=== PATIENT | male | born 1975 | race Caucasian/White ===

== ENCOUNTER 2022-10-28 14:44 | Outpatient (AMB) | payer BC, SELFPAY ==
--- NOTE | 2022-10-28 15:01 | MHC.PC.OV ---
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 ? Tick bite -He is unsure if it was a tick or not. He does report joint pain. -Rash on R arm PMHx:GERD SurgHx: None FHx: Dad: Prostate CA, PE Mom: CAD, [place]. SocHx: Nonsmoker, EtOH weekends 3-4. 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 1. Little interest or pleasure in doing things: not at all 2. Feeling down, depressed, or hopeless: not at all 3. Trouble falling or staying asleep, or sleeping too much: several days 4. Feeling tired or having little energy: several days 5. Poor appetite or overeating: not at all 6. Feeling bad about yourself - or that you are a failure or have let yourself or your family down: not at all 7. Trouble concentrating on things, such as reading the newspaper or watching television: not at all 8. Moving or speaking so slowly that other people could have noticed. Or the opposite - being so fidgety or restless that you have been moving around a lot more than usual: not at all 9. Thoughts that you would be better off or of hurting yourself in some way: not at all Total score: 2 Source: Developed by Drs. Brian Floyd, Ellie Blackwell, Mohinder Foster and colleagues, with an educational ligia from [employer]. Thrive Questionnaire I am a: Patient What is your living situation today?: I have a steady place to live Within the past 12 months, did the food you bought not last and you didn't have the money to get more?: Never true Within the past 12 months, did you worry whether your food would run out before you got money to buy more?: Never true Do you have trouble paying for medicines?: No Do you have trouble getting transportation to medical appointments?: No Do you have trouble paying your heating and electricity bill?: No Do you have trouble taking care of your child, family member or friend?: No Do you have trouble with day-to-day activities such as bathing, preparing meals, shopping, managing finances, etc.?: No Are you currently unemployed and looking for a job?: No Are you interested in more education?: No PATRICK-7 AMB Questionnaire PATRICK-7 Feeling nervous, anxious, or on edge: 0 = Not at all Not being able to stop or control worryin = Not at all Worrying too much about different things: 0 = Not at all Trouble relaxin = Several days Being so restless that it is hard to sit still: 0 = Not at all Becoming easily annoyed or irritable: 0 = Not at all Feeling afraid as if something awful might happen: 0 = Not at all Total PATRICK-7 score (0-4 normal; 5-9 mild; 10-14 moderate; 15-21 severe): 1 Source: Developed by Drs. Brian Floyd, Mohinder Stark and colleagues, with an educational ligia from [employer]. Review of Systems Const Denies chills, Denies fatigue, Denies fever(s), Denies headache(s) and Denies weakness ENT Denies dizziness and Denies headache(s) Card Denies dyspnea Resp Denies cough, Denies dyspnea, Denies wheezing and Denies other (shortness of breath) Musc Details: R elbow pain Denies numbness and Denies tingling Skin/Breast Reports rash Neuro Denies dizziness, Denies headache(s), Denies numbness, Denies tingling and Denies weakness Psych Denies anxiety and Denies depression Endo Denies fatigue Aller/Immun Denies wheezing Physical exam (Primary Care) Vital Signs: Last Vital Signs Pulse 73 10/28/22 15:02 BP 120/78 10/28/22 15:02 Pulse Ox 97 10/28/22 15:02 Oxygen Delivery Method Room Air 10/28/22 15:02 BMI result Body Mass Index 30.4 Tobacco/Smoking Status: Tobacco use Status Tobacco use date assessed 10/28/22 10/28/22 15:19 Patient Tobacco Use Status Never used Tobacco 10/28/22 15:19 e-Cigarette/Vaping Use Never Used 10/28/22 15:19 PHQ-9: PHQ-9 Score PHQ-9: Total score 2 10/28/22 15:31 Const General: well developed; No acute distress Nutritional Appearance: well nourished Orientation/consciousness: patient oriented x3 HENMT Head: Yes normocephalic and Yes atraumatic Eyes General: appearance normal, both eyes and all related structures Pupils: Equal, round and reactive pupils present EOM: EOMs intact bilaterally Resp Effort & Inspection: normal respiratory effort Auscultation: clear to auscultation bilaterally Cardio Rate: regular rate Rhythm: regular rhythm Heart sounds: S1 normal heart sound present, S2 normal heart sound present, no gallops, no murmurs and no rubs Skin Other: Rash on r arm about 4cm in diameter with inflammatory response at the center with R elbow pain Neuro General: patient oriented x3 and gait normal Cranial nerves: Yes Equal, round and reactive pupils present Psych Affect: normal affect Assessment and Plan Assessment & Plan (1) GERD (gastroesophageal reflux disease): Code(s): K21.9 - Gastro-esophageal reflux disease without esophagitis Plan: Significant GERD symptoms almost every day prior to using Prilosec OTC Will give him a script for omeprazole and refer him to Gastroenterology (2) Tick bite: Code(s): W57.XXXA - Bitten or stung by nonvenomous insect and other nonvenomous arthropods, initial encounter Plan: Expanding rash with inflammatory response at the Center, now about 4 cm in diameter Also has worsening right elbow pain which is distal to this lesion. Presentation consistent with an erythema migrans rash and Lyme joint pain Will start patient on doxycycline and check Lyme titer Follow-up in a week (3) Laboratory exam ordered as part of routine general medical examination: Code(s): Z00.00 - Encounter for general adult medical examination without abnormal findings Plan: Check labs Orders: Orders Comprehensive Page. Panel Fast Today Z00.00 - Encounter for general adult medical examination without abnormal findings Lipid Panel Today Z00.00 - Encounter for general adult medical examination without abnormal findings Prostate Specific Antigen Scr Today Z12.5 - Encounter for screening for malignant neoplasm of prostate TSH reflex Free T4 Today Z00.00 - Encounter for general adult medical examination without abnormal findings Microalbumin, Random (w Creat) Today I10 - Essential (primary) hypertension UA and rflx microscopic Today Z00.00 - Encounter for general adult medical examination without abnormal findings Referrals Gastroenterology Referral K21.9 - Gastro-esophageal reflux disease without esophagitis, Z12.11 - Encounter for screening for malignant neoplasm of colon Medications: New doxycycline hyclate 100 mg PO BID 56 tabs 0RF 28 days omeprazole magnesium (Prilosec OTC) 20 mg PO DAILY 90 tabs 1RF 90 days Coding Level of Care Code New Pt Level 4 (08940) Diagnoses GERD (gastroesophageal reflux disease) K21.9 Tick bite W57.XXXA Laboratory exam ordered as part of routine general medical examination Z00.00
[2022-10-28 15:02] VITALS: BP 120/78; PULSE 73; O2SAT 97; BMI 30.4
== END 2022-10-28 15:45 | disposition home or self-care (01) ==
PROVIDERS: Visit Provider Family Medicine
DX: K21.9 Gastro-esophageal reflux disease without esophagitis (principal); W57.XXXA Bitten or stung by nonvenomous insect and other nonvenomous arthropods, initial encounter; Z00.00 Encounter for general adult medical examination without abnormal findings
CPT/HCPCS: 99204

== ENCOUNTER 2022-10-30 07:02 | Outpatient (REF) | payer BC, SELFPAY ==
[2022-10-30 11:53] LABS: Appearance Urine Clear; Color Urine Yellow; Glucose Urine UA Negative (Negative); Leukocyte Esterase Urine Negative (Negative); Nitrite Urine Negative (Negative); Specific Gravity - Urine 1.015 (1.005-1.025); Urine Blood Negative (Negative); Urine Ketones Negative (Negative); Urine Protein Negative (Neg-Trace)
[2022-10-30 12:07] LABS: Prostate Specific Antigen Scr 0.38 ng/mL (<0.05-4.0)
[2022-10-30 12:09] LABS: Alanine Aminotransferase 30 U/L (0-40); Albumin Level 4.4 g/dL (3.5-5.0); Alkaline Phosphatase 70 U/L (39-117); Anion Gap 10 (12-20); Aspartate Amino Transferase 22 U/L (5-37); Bilirubin Total 2.5 mg/dL (0.0-1.0); Blood Urea Nitrogen 13 mg/dL (9-16); Calcium 9.7 mg/dL (8.4-10.2); Carbon Dioxide 25 mmol/L (22-29); Chloride 106 mmol/L (96-108); Cholesterol 286 mg/dL; Estimated Glomerular Filt Rate > 60; Glucose Fasting 86 mg/dL (60-99); HDL Cholesterol 61 mg/dL; LDL Cholesterol Calculated 206 mg/dl; Potassium 3.8 mmol/L (3.3-5.1); Sodium 137 mmol/L (135-145); TSH reflex Free T4 1.02 uIU/mL (0.32-4.0); Total Protein 7.2 g/dL (6.5-8.0); Triglycerides 96 mg/dL
[2022-10-30 13:11] LABS: Creatinine Urine 99.94 mg/dL; Microalbumin Urine < 5.0 mg/L
[2022-10-31 10:09] LABS: Lyme Abs Screen <0.90 index
== END 2022-10-30 07:03 | disposition home or self-care (01) ==
LOC: HO.WFDLDS 07:02
PROVIDERS: Visit Provider Family Medicine
DX: Z00.00 Encounter for general adult medical examination without abnormal findings (principal); Z12.5 Encounter for screening for malignant neoplasm of prostate; I10 Essential (primary) hypertension; T14.8XXA Other injury of unspecified body region, initial encounter; W57.XXXA Bitten or stung by nonvenomous insect and other nonvenomous arthropods, initial encounter
CPT/HCPCS: 36415; 80053; 80061; 81003; 82043; 84153; 84443; 86617; 86618

== ENCOUNTER 2022-11-25 11:56 | Outpatient (AMB) | payer BC, SELFPAY ==
--- NOTE | 2022-11-25 11:50 | A.OFFVIS_ITS ---
Intake Vital Signs 11/25/22 11:52 Height 5 ft 11 in Weight 221 lb BMI 30.8 BP 118/64 Blood Pressure Location Rt brachial Position Sitting Intake Visit Reasons: GERD/Colonoscopy screening Intake Note: Patient is here for new patient appointment for GERD and Colonoscopy screening. CC: Increase acid reflux since May. Allergies cephalexin [From Keflex] Allergy (Mild, Verified 11/25/22 11:53) hives Medication List - Last Reconciled 11/25/22 by Emily Hanson, RN omeprazole magnesium (Prilosec OTC) 20 mg PO DAILY 90 days HPI HPI Comments History of Present Illness Details A 47 y/o with persistent gerd- managed with tums-then prilosec daily He has frequent break through- esophageal spasm- event that was scary As appetite is typically good-he has globus Bowels-no issues No cardiac or respiratory diagnosis No nausea, vomiting, hematemesis, hematochezia fever chills PFSH Medical History Frequent headaches Whiplash Sinusitis Asthma Family History Mother Heart attack Father Asthma Cancer Social History Housing: House Patient Tobacco Use Status: Never used Tobacco e-Cigarette/Vaping Use: Never Used service: No Current occupational status: employed 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 Cognitive needs: No Hearing needs: No Vision needs: No Review of Systems Const All systems reviewed & are unremarkable except as noted in HPI and below Card Denies chest pain and Reports dyspnea Resp Reports dyspnea GI Denies abdominal pain, Denies change in bowel habits, Reports heartburn, Denies nausea and Denies vomiting Physical Exam Vital Signs: Last Vital Signs BP 118/64 11/25/22 11:52 BMI result Body Mass Index 30.8 Const General: cooperative, healthy appearing and comfortable Orientation/consciousness: patient oriented x3 Limitations: no limitations Resp Effort & Inspection: normal respiratory effort and able to speak in complete sentences Auscultation: clear to auscultation bilaterally, no rales, no rhonchi and no wheezes Cardio Rate: regular rate Rhythm: regular rhythm Heart sounds: S1 normal heart sound present and S2 normal heart sound present GI Palpation (GI): Soft to palpation and nontender Auscultation: normal bowel sounds Skin General skin exam: no rashes or lesions noted Neuro General: patient oriented x3 Extrem General: Yes full ROM Assessment & Plan Assessment & Plan (1) GERD (gastroesophageal reflux disease): Comment: Omeprazole 20 mg with breakthrough will switch to 40 mg daily Code(s): K21.9 - Gastro-esophageal reflux disease without esophagitis Plan: Omeprazole 40 mg daily Reflux precautions review EGD r/o pud, nonulcer dyspepsia, esophagitis or other endoscopic findings to account for his symptoms Upper GI series assessed prior to EGD (able to get sooner eval) (2) Screening for colon cancer: Code(s): Z12.11 - Encounter for screening for malignant neoplasm of colon Plan: Index screening colonoscopy MiraLax Gatorade split prep Plan EGD/ colonoscopy MiraLax Gatorade split prep Orders: Orders [place] upper GI series Today K21.9 - Gastro-esophageal reflux disease without esophagitis, R09.89 - Other specified symptoms and signs involving the circulatory and respiratory systems Medications: New bisacodyl (Dulcolax (bisacodyl)) Take 4 tablets by mouth at 12:00pm the day before your procedure. 20 mg (4 x 5 mg) PO ONCE 1 day 4 tabs 0RF colonoscopy prep Z12.11 - Encounter for screening for malignant neoplasm of colon omeprazole 40 mg (2 x 20 mg) PO DAILY PRN 30 caps 5RF reflux polyethylene glycol 3350 (Miralax) Take as directed by mouth the day before your procedure. 238 grams PO ONCE 1 day PRN 238 grams 0RF laxative effect Patient Instructions: Em 47-year-old Gent persistent acid reflux age-appropriate index screening colonoscopy He will be scheduled for EGD/ colonoscpy-discussed procedure, rare risks, need for escorted due to anesthesia as well as MiraLax Gatorade split prep literature given Reviewed reflux precautions Continue PPI with increased dose, avoid culprits Get upper GI series Encouraged to call with any questions or concerns Appreciate the opportunity assist in the care this em Nick Coding Level of Care Code New Pt Level 3 (20595) Diagnoses GERD (gastroesophageal reflux disease) K21.9 Screening for colon cancer Z12.11 Time Spent (min) 30
[2022-11-25 11:52] VITALS: BP 118/64; BMI 30.8
== END 2022-11-25 12:37 | disposition home or self-care (01) ==
PROVIDERS: PCP Family Medicine; Visit Provider Physician Assistant
DX: Z01.818 Encounter for other preprocedural examination (principal); Z12.11 Encounter for screening for malignant neoplasm of colon; K21.9 Gastro-esophageal reflux disease without esophagitis
CPT/HCPCS: S0285

== ENCOUNTER → 2022-11-25 11:56 | Outpatient (BNVA) | payer BC, SELFPAY | PROVIDERS: PCP Family Medicine; Visit Provider Physician Assistant ==

== ENCOUNTER 2023-02-25 06:52 | Day surgery (SDC) | payer BC, SELFPAY ==
[2023-02-23 10:18] VITALS: BMI 30.8
--- NOTE | 2023-02-24 09:07 | HO.ANESPROP2 ---
Documented by User: Shelley Alston NP 02/24/23 09:07 HPI - Anesthesia Eval Consult details Narrative: 48yo M for Upper Endoscopy and Colonoscopy [facility] Active Problems Active Problems: All Active Problems (Updated 11/25/22 @ 12:57 by Claudia You PA-C) Globus sensation (Acute) Screening for colon cancer (Acute) Tick bite (Acute) Laboratory exam ordered as part of routine general medical examination (Acute) GERD (gastroesophageal reflux disease) (Acute) Past Medical History Medical History Frequent headaches Whiplash Sinusitis Asthma Family History Family History Mother Heart attack Father Asthma Cancer Social History Social History Housing: House Patient Tobacco Use Status: Never used Tobacco e-Cigarette/Vaping Use: Never Used Use of substances other than those prescribed or required for medical reasons: No Are you DNR?: No Advance Directives: No Advance Directives Information Provided: Yes service: No Current occupational status: employed 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 Cognitive needs: No Hearing needs: No Vision needs: No Meds Allergies Allergy/AdvReac Type Severity Reaction Status Date / Time cephalexin [From Keflex] Allergy Mild hives Verified 02/25/23 07:06 Exam Height,Weight and Vital Signs: Height 5 ft 11 in Weight 100.244 kg Assessment and Plan Assessment Anesthesia Assessment: Chart Reviewed Documented by User: Manuel Evangelista MD 02/25/23 07:27 [facility] Past Medical History Medical History Frequent headaches Whiplash Sinusitis Asthma Family History Family History Mother Heart attack Father Asthma Cancer Family history of problems with anesthesia: No Surgical History History of Problems with Anesthesia: No Social History Social History Housing: House Patient Tobacco Use Status: Never used Tobacco e-Cigarette/Vaping Use: Never Used Use of substances other than those prescribed or required for medical reasons: No Are you DNR?: No Advance Directives: No Advance Directives Information Provided: Yes service: No Current occupational status: employed 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 Cognitive needs: No Hearing needs: No Vision needs: No Meds Allergies Allergy/AdvReac Type Severity Reaction Status Date / Time cephalexin [From Keflex] Allergy Mild hives Verified 02/25/23 07:06 Exam Airway Mallampati Class: II TM Dist: >3cm Neck ROM: Limited Heart: rrr Lungs: cta Assessment and Plan Assessment Anesthesia Assessment: Anesthesia Plan Discussed Final Anesthetic Review Family History of Problems with Anesthesia: No History of Problems with Anesthesia: No NPO: Yes ASA Class: II Final Preanesthetic Review: No Changes in Pt Med Stat, Meds/Allgs Chart Reviewed, Consent Obtained/Reviewed and Anes Risks/Benef Reviewed Patient Risk: Intermediate Procedure Risk: Intermediate Anesthetic Plan Anesthetic Plan: GA and Agree w/ Assess. and Plan Disposition: Standard PACU
--- NOTE | 2023-02-25 06:48 | MHC.SHP ---
Pre-Procedural Eval Section A Date of Service: 02/25/23 Section B Chief Complaint: reflux disease,screening Relevant Family History (Specify if Yes): No Relevant Social History: None Present Medications: see Short Stay Collaborative assessment Medical History: Significant History (Frequent headaches Whiplash Sinusitis Asthma) History of Previous Operations: No relevant previous surgery Allergies: Allergies Allergy/AdvReac Type Severity Reaction Status Date / Time cephalexin [From Keflex] Allergy Mild hives Verified 11/25/22 11:53 Review of Systems Sugical H&P ROS: Negative: Constitution, Cardiovascular, Respiratory, Neurological, Psychiatric, Hem-Onc, Allergic/Immunologic, Gastrointestinal, Genitourinary, Musculoskeletal, Integumentary, Endocrine and Eyes/Ears/Nose/Throat Exam Surgical H&P Exam: Normal: HEENT, Normal: Heart, Normal: Lungs, Normal: Extremities, Normal: Abdomen, Normal: Skin and Normal: Neurological Plan Diagnosis/Plan: Unchanged I have reviewed the history and physical and performed a pertinent physical examination on my patient. No changes have occurred unless specified. Time Spent With Patient Time: Total time managing care of this patient today ____ minutes.
[2023-02-25 07:02] VITALS: BMI 30.1
[2023-02-25 07:17] VITALS: BP 139/84; PULSE 83; RESP 16; TEMP 35.8; O2SAT 97
[2023-02-25] MEDS: Lactated Ringers 1,000 ML 100 ML IVCONT (07:18)
--- NOTE | 2023-02-25 08:52 | W.PM.OPN ---
Operative Note Operative Note Date of Service: 02/25/23 Narrative: Operative Information Procedure Description: EGD, Colonoscopy Indication: GERD, screening Anesthesia: MAC FLEXIBLE TRANSORAL UPPER GASTROINTESTINAL ENDOSCOPY AND COLONOSCOPY PROCEDURE NOTE UPPER ENDOSCOPY Consent: Indications for the procedure and potential complications of bleeding, perforation, reaction to medications and missed diagnosis were discussed with the patient and informed consent was obtained. Instrument: Olympus GIF H 190 J mid size upper endoscope Monitoring: Vital signs and clinical assessment, continuous EKG monitoring, Pulse oximetry, Carbon Dioxide monitoring and blood pressure monitoring were done throughout the procedure. Procedure: The patient was placed in the left lateral decubitis position and pre-procedure medications were administered and a bite block was placed. The endoscope was inserted into the mouth and advanced under direct vision to the third part of duodenum. A careful inspection was made as the upper endoscope was withdrawn including a retroflexed examination of the proximal stomach; Findings and interventions are described below. Findings: Larynx:normal Esophagus: GE junction at 39 cm, diaphragm hiatus at 41 cm, consistent with 2 cm sliding hiatal hernia, erosive esophagitis LA grade C with linear erosive streaks and bogginess noted at GEJ, bx taken from GEJ, distal and proximal esophagus Stomach: Normal mucosa. Grade 2 flap valve on retroflexed examination of the cardia. Duodenum: Normal bulb and descending duodenum, Intervention: Biopsies as noted above COLONOSCOPY Instrument: Olympus variable stiffness ADULT scope 190L Colonoscopy Monitoring: Vital signs and clinical assessment, continuous EKG monitoring, Pulse oximetry, Carbon Dioxide monitoring and blood pressure monitoring were done throughout the procedure. Colon withdrawal time was 8 minutes. Procedure: The patient was placed in the left lateral decubitis position and pre-procedure medications were administered. After a digital rectal examination of the ano-rectum, the video colonoscope was inserted into the rectum and advanced through the colon to the cecum/TI. The colonoscope was slowly withdrawn in a retrograde panoramic fashion and the colon mucosa was carefully examined including a retroflexed view of the rectum. Findings and interventions are described below. Procedure Difficulty: easy Findings: Terminal Ileum-normal Cecum:normal Ascending Colon: normal Transverse Colon -normal Descending Colon:normal Sigmoid Colon: normal Rectum: Retroflexion with small internal hemorrhoids, grade I Anorectum - normal Colon preparation: [place] Bowel Preparation Scale Right colon; 3 Transverse colon: 3 Left colon; 3 (0 = Unprepared colon segment with mucosa not seen due to solid stool that cannot be cleared. 1 = Portion of mucosa of the colon segment seen, but other areas of the colon segment not well seen due to staining, residual stool and/or opaque liquid. 2 = Minor amount of residual staining, small fragments of stool and/or opaque liquid, but mucosa of colon segment seen well. 3 = Entire mucosa of colon segment seen well with no residual staining, small fragments of stool or opaque liquid) Impression and Post Procedure Diagnosis: Endoscopy Findings: erosive esophagitis small haital hernia Colonoscopy Findings: internal hemorrhoids Plan: Await Pathology results Repeat Colonoscopy in 10 years or earlier if clinically indicated High fiber diet leaflet avoid straining at stool, epsom salts and sitz bath, anusol supps or cream GERD precautions, check compliance with PPI, consider repeat EGD in 3-6 months to document healing and exclude barretts Above findings were reviewed with the patient and relevant handouts were provided if indicated.
[2023-02-25 08:55] VITALS: BP 107/60; PULSE 64; RESP 16; TEMP 36.1; O2SAT 98
[2023-02-25 09:10] VITALS: BP 134/93; PULSE 74; RESP 16; TEMP 36.2; O2SAT 99
== END 2023-02-25 09:35 | disposition home or self-care (01) ==
PROVIDERS: PCP Family Medicine; Visit Provider Internal Medicine Gastroenterology
PROC: (CPT 45378; principal; 2023-02-25 08:30)
DX: Z12.11 Encounter for screening for malignant neoplasm of colon (principal); K64.0 First degree hemorrhoids; K21.9 Gastro-esophageal reflux disease without esophagitis; K20.80 Other esophagitis without bleeding; K44.9 Diaphragmatic hernia without obstruction or gangrene; J32.9 Chronic sinusitis, unspecified; J45.909 Unspecified asthma, uncomplicated; R51.9 Headache, unspecified; Z79.899 Other long term (current) drug therapy; Z88.1 Allergy status to other antibiotic agents
CPT/HCPCS: 45378; 43239; 88305; J2704

== ENCOUNTER → 2023-02-25 06:52 | Outpatient (BNV) | payer BC, SELFPAY | PROVIDERS: PCP Family Medicine; Visit Provider Internal Medicine Gastroenterology | DX: Z12.11 Encounter for screening for malignant neoplasm of colon (principal); K21.00 Gastro-esophageal reflux disease with esophagitis, without bleeding; K64.0 First degree hemorrhoids | CPT/HCPCS: 43239; 45378 ==

== ENCOUNTER 2023-03-17 15:03 | Outpatient (AMB) | payer BC, SELFPAY ==
[2023-03-17 15:11] VITALS: BP 141/94; PULSE 93; BMI 28.6
--- NOTE | 2023-03-17 15:11 | A.OFFVIS_ITS ---
Intake Vital Signs 03/17/23 15:11 Height 5 ft 11 in Weight 205 lb BMI 28.6 BP 141/94 H Blood Pressure Location Lt brachial Position Sitting Pulse 93 Intake Visit Reasons: S/P Double; Dr. Aguila Intake Note: Follow up for EGD/Colonoscopy results. Patient denies any GI issues. 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 Accompanied by: Self / Same As Patient Allergies cephalexin [From Keflex] Allergy (Mild, Verified 03/17/23 15:11) hives HPI HPI Comments History of Present Illness Details A 48 y/o male after EGD and colonoscopy-he tolerated procedures well He said since he has started new medication reflux symptoms have much improved Now pantoprazole - sx improved Review procedure report, pathology recommendation Questions asked answered to his satisfaction no nausea, vomiting hematemesis, hematochezia fever chills PFSH Medical History Frequent headaches Whiplash Sinusitis Asthma Surgical History History of esophagogastroduodenoscopy (EGD) Hx of colonoscopy Family History Mother Heart attack Father Asthma Cancer Social History Housing: House Patient Tobacco Use Status: Never used Tobacco e-Cigarette/Vaping Use: Never Used service: No Current occupational status: employed 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 Cognitive needs: No Hearing needs: No Vision needs: No Review of Systems Const All systems reviewed & are unremarkable except as noted in HPI and below Card Denies chest pain and Denies dyspnea Resp Denies dyspnea GI Denies abdominal pain, Denies heartburn, Denies nausea and Denies vomiting Physical Exam Vital Signs: Last Vital Signs Pulse 93 03/17/23 15:11 BP 141/94 H 03/17/23 15:11 BMI result Body Mass Index 28.6 Const General: cooperative, healthy appearing, comfortable and no acute distress Orientation/consciousness: patient oriented x3 Limitations: no limitations Eyes Sclerae: sclerae normal Skin General skin exam: no rashes or lesions noted Neuro General: patient oriented x3 Extrem General: Yes full ROM Psych Appearance: grossly normal and well kempt Mental Status: mental status grossly normal Speech and movement: Normal speech and movement present and Clear speech present Affect: normal affect Attitude: cooperative Thought process: Normal thought process present Thought content: Normal thought content present Results Reviewed Results Reviewed: Impression and Post Procedure Diagnosis: Endoscopy Findings: erosive esophagitis small haital hernia Colonoscopy Findings: internal hemorrhoids Plan: Await Pathology results Repeat Colonoscopy in 10 years or earlier if clinically indicated High fiber diet leaflet avoid straining at stool, epsom salts and sitz bath, anusol supps or cream GERD precautions, check compliance with PPI, consider repeat EGD in 3-6 months to document healing and exclude barretts Above findings were reviewed with the patient and relevant handouts were provided if indicated. Name: Jono Vasquez Age/Sex: 48/M Attending: Marv Aguila MD : 1975 Submitted by: Marv Aguila MD Copies to: Sherif Hernandez MD MR #: [id number] Status: [facility] Collected: 02/25/23 Location: [facility] Received: 02/25/23 Diagnosis A. EG junction, biopsy: - Cardiofundic-type mucosa with moderate chronic, focally active, inflammation; no intestinal metaplasia seen. - Active esophagitis (maximum eosinophil count 5 per high powered field). B. Esophagus, distal, biopsy: Active esophagitis (maximum eosinophil count 12 per high powered field). C. Esophagus, proximal, biopsy: Squamous epithelium within normal limits; no inflammation seen. Clinical History Pre-Op Dx: Screening, GERD Post-Op Dx: Lower: internal hemorrhoids; Upper: erosive esophagitis, hiatal hernia Microscopic Description A-C. Microscopic sections reviewed. Material Received A. EG junction B. Distal esophagus C. Proximal esophagus Gross Description Received in 3 parts. Part A: Received in formalin labeled ?EG junction? are 2 grimaldo irregular and rectangular tissue fragments measuring 0.15 and 0.3 cm, submitted in toto in a cassette labeled A. Part B: Received in formalin labeled ?distal esophagus? are 4 grimaldo irregular tissue fragments ranging from 0.1-0.35 cm, submitted in toto in a cassette labeled B. Part C: Received in formalin labeled ?proximal esophagus? are 2 alan-white irregular tissue fragments each measuring 0.3 cm, submitted in toto in a cassette labeled C. CEDS Copies To Patient: Jono Vasquez Age/Sex: 48/M MR#: [id number] Page 1 of 2 Assessment & Plan Assessment & Plan (1) Esophagitis determined by biopsy: Comment: Reviewed pathology and recommendation Code(s): K20.90 - Esophagitis, unspecified without bleeding Plan: Continue pantoprazole Repeat EGD 3-6 months (2) GERD (gastroesophageal reflux disease): Comment: Pantoprazole 40 mg daily Code(s): K21.9 - Gastro-esophageal reflux disease without esophagitis Plan: Reinforced importance of consistent daily PPI (3) Hemorrhoids: Code(s): K64.9 - Unspecified hemorrhoids Plan: Avoid straining Maintain high-fiber diet Plan EGD- w/ AGUILA- 3-6 months-note sent to schedulers Orders: Orders EDG - GI Use Only 3 Months K20.90 - Esophagitis, unspecified without bleeding Patient Instructions: Repeat EGD 3-6 months Continue pantoprazole 40 mg daily Reflux precautions review Continue high-fiber diet Avoid straining with hemorrhoid Repeat asymptomatic colonoscopy 10 years Coding Level of Care Code Est Pt Level 3 (96492) Diagnoses Esophagitis determined by biopsy K20.90 GERD (gastroesophageal reflux disease) K21.9 Hemorrhoids K64.9 Time Spent (min) 30
== END 2023-03-17 15:56 | disposition home or self-care (01) ==
PROVIDERS: PCP Family Medicine; Visit Provider Physician Assistant
DX: K20.90 Esophagitis, unspecified without bleeding (principal); K21.9 Gastro-esophageal reflux disease without esophagitis; K64.9 Unspecified hemorrhoids
CPT/HCPCS: 99213

== ENCOUNTER → 2023-03-17 15:03 | Outpatient (BNVA) | payer BC, SELFPAY | PROVIDERS: PCP Family Medicine; Visit Provider Physician Assistant ==

== ENCOUNTER 2023-04-22 15:35 | Outpatient (AMB) | payer BC, SELFPAY ==
[2023-04-22 15:42] VITALS: BP 124/70; PULSE 77; O2SAT 97; BMI 30.2
--- NOTE | 2023-04-22 15:42 | A.OFFPC_ITS ---
Vital Signs 04/22/23 15:42 Height 5 ft 11 in Weight 216 lb 4 oz BMI 30.2 BP 124/70 Blood Pressure Location Lt brachial Position Sitting Pulse 77 Pulse Source Pulse Oximeter Pulse Oximetry (%) 97 Oxygen Delivery Method Room Air Intake Visit Reasons: cpe Intake Note: Patient is here today for his physical. Allergies cephalexin [From Keflex] Allergy (Mild, Verified 04/22/23 15:45) hives Tobacco use date assessed: 04/22/23 HPI cpe HPI Details 48 y/o male presents for a CPE with f/u labs and health maintenance. Labs were drawn 10/30/22. Reviewed labs with pt. Triglycerides 86. TC 286. LDL 206. HDL 61. Pt reports GERD much improved on pantoprazole. 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 Cognitive needs: No Hearing needs: No Vision needs: No Physical exam (Primary Care) Vital Signs: Last Vital Signs Pulse 77 04/22/23 15:42 BP 124/70 04/22/23 15:42 Pulse Ox 97 04/22/23 15:42 Oxygen Delivery Method Room Air 04/22/23 15:42 BMI result Body Mass Index 30.2 Tobacco/Smoking Status: Tobacco use Status Tobacco use date assessed 04/22/23 04/22/23 15:49 Patient Tobacco Use Status Never used Tobacco 04/22/23 15:44 e-Cigarette/Vaping Use Never Used 04/22/23 15:44 Assessment and Plan Assessment & Plan (1) Adult general medical exam: Code(s): Z00.00 - Encounter for general adult medical examination without abnormal findings Plan: 48-year-old?male?presents?for?complete?physical?exam Exam?within?normal?limits Encouraged?healthy?diet?with?active?lifestyle?and?plenty?of?exercise (2) GERD (gastroesophageal reflux disease): Comment: Pantoprazole 40 mg daily Code(s): K21.9 - Gastro-esophageal reflux disease without esophagitis Plan: Patient?is?on?pantoprazole?and?followed?by?Gastroenterology He?notes?symptoms?are?controlled?with?this?medication As?repeat?endoscopy?coming (3) Screening for colon cancer: Code(s): Z12.11 - Encounter for screening for malignant neoplasm of colon Plan: Followed?by?Gastroenterology Was?told?he?needs?follow-up?colonoscopy?in?10?years.??Up-to-date (4) Screening for prostate cancer: Code(s): Z12.5 - Encounter for screening for malignant neoplasm of prostate Plan: PSA?was?within?normal?limits Will?screen?annually (5) Hypercholesteremia: Code(s): E78.00 - Pure hypercholesterolemia, unspecified Plan: LDL?cholesterol?is?significantly?high. HDL?is?quite?good?but?likely?not?fully?protective He?notes?that?his?diet?has?been?poor?regarding?junk?food Recommended?diet?lower?in?saturated?fats?and?cholesterol.??Recommended?exercise Will?repeat?lipids?in?about?3?months?and?follow-up?with?patient. Orders: Orders Comprehensive [place]. Panel Fast Today E78.00 - Pure hypercholesterolemia, unspecified, Z00.00 - Encounter for general adult medical examination without abnormal findings Lipid Panel Today E78.00 - Pure hypercholesterolemia, unspecified, Z00.00 - Encounter for general adult medical examination without abnormal findings Coding Level of Care Code Est Pt Level 3 (96971) Est Pt Prev Care 40-64y(59129) Diagnoses Adult general medical exam Z00.00 GERD (gastroesophageal reflux disease) K21.9 Screening for colon cancer Z12.11 Screening for prostate cancer Z12.5 Hypercholesteremia E78.00
== END 2023-04-22 16:30 | disposition home or self-care (01) ==
PROVIDERS: PCP Family Medicine; Visit Provider Family Medicine
DX: Z00.00 Encounter for general adult medical examination without abnormal findings (principal); K21.9 Gastro-esophageal reflux disease without esophagitis; Z12.11 Encounter for screening for malignant neoplasm of colon; Z12.5 Encounter for screening for malignant neoplasm of prostate; E78.00 Pure hypercholesterolemia, unspecified
CPT/HCPCS: 99396

== ENCOUNTER 2023-07-02 07:22 | Day surgery (SDC) | payer BC, SELFPAY ==
[2023-06-30 10:16] VITALS: BMI 28.6
--- NOTE | 2023-07-01 16:37 | P.CONAN_ITS ---
HPI - Anesthesia Eval Consult details Narrative: 48 yo male patient for EGD PMFSH Active Problems Active Problems: All Active Problems Hypercholesteremia (Acute) Screening for prostate cancer (Acute) Adult general medical exam (Acute) Hemorrhoids (Acute) Esophagitis determined by biopsy (Acute) Globus sensation (Acute) Screening for colon cancer (Acute) Tick bite (Acute) Laboratory exam ordered as part of routine general medical examination (Acute) GERD (gastroesophageal reflux disease) (Acute) Past Medical History Medical History Frequent headaches Whiplash Sinusitis Asthma Family History Family History Mother Heart attack Father Asthma Cancer Family history of problems with anesthesia: No Surgical History Surgical History History of esophagogastroduodenoscopy (EGD) Hx of colonoscopy History of Problems with Anesthesia: No Social History Social History Housing: House Patient Tobacco Use Status: Never used Tobacco e-Cigarette/Vaping Use: Never Used Are you DNR?: No Advance Directives: No Advance Directives Information Provided: Yes Nutrition Risks: No Nutritional Risk service: No Current occupational status: employed 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 Cognitive needs: No Hearing needs: No Vision needs: No Meds Allergies Allergy/AdvReac Type Severity Reaction Status Date / Time cephalexin [From Keflex] Allergy Mild hives Verified 07/02/23 07:45 Exam Height,Weight and Vital Signs: Height 5 ft 11 in Weight 92.986 kg Vital Signs Temp Pulse Resp BP Pulse Ox O2 Del Method 98.2 F 75 18 123/74 98 Room Air 07/02/23 08:08 07/02/23 08:08 07/02/23 08:08 07/02/23 08:08 07/02/23 08:08 07/02/23 08:08 Airway Mallampati Class: II TM Dist: >3cm Neck ROM: Full Loose/Missing/Broken Teeth: No Heart: RRR Lungs: CTAB Assessment and Plan Assessment Anesthesia Assessment: Anesthesia Plan Discussed and Chart Reviewed Final Anesthetic Review Family History of Problems with Anesthesia: No History of Problems with Anesthesia: No NPO: Yes ASA Class: II Final Preanesthetic Review: No Changes in Pt Med Stat, Meds/Allgs Chart Reviewed, Consent Obtained/Reviewed and Anes Risks/Benef Reviewed Patient Risk: Low Procedure Risk: Low Assessment/Block/Sedation in SS: Assess/Block/Sedation-SS Anesthetic Plan Anesthetic Plan: MAC: and TIVA Disposition: Standard PACU
[2023-07-02 07:50] VITALS: BMI 27.9
[2023-07-02 08:08] VITALS: BP 123/74; PULSE 75; RESP 18; TEMP 36.8; O2SAT 98
--- NOTE | 2023-07-02 08:17 | P.HPSUR_ITS ---
Pre-Procedural Eval Section A - 24 Hr Update-Section A only Date of Service: 07/02/23 Section B - Complete if H&P > 30 days Chief Complaint: Esophagitis, unspecified without bleeding Relevant Family History (Specify if Yes): No Relevant Social History: None Present Medications: see Short Stay Collaborative assessment Medical History: Significant History (Frequent headaches Whiplash Sinusitis Asthma) History of Previous Operations: Relevant previous surgery/procedure and date(s) (story of esophagogastroduodenoscopy (EGD) Hx of colonoscopy) Allergies: Allergies Allergy/AdvReac Type Severity Reaction Status Date / Time cephalexin [From Keflex] Allergy Mild hives Verified 07/02/23 07:45 Review of Systems Sugical H&P ROS: Negative: Constitution, Cardiovascular, Respiratory, Neurological, Psychiatric, Hem-Onc, Allergic/Immunologic, Gastrointestinal, Marce tourinary, Musculoskeletal, Integumentary, Endocrine and Eyes/Ears/Nose/Throat Exam Surgical H&P Exam: Normal: HEENT, Normal: Heart, Normal: Lungs, Normal: Extremities, Normal: Abdomen, Normal: Skin and Normal: Neurological Plan Diagnosis/Plan: Unchanged I have reviewed the history and physical and performed a pertinent physical examination on my patient. No changes have occurred unless specified. Time Spent With Patient Time: Total time managing care of this patient today ____ minutes.
--- NOTE | 2023-07-02 09:49 | W.PM.OPN ---
Operative Note Operative Note Date of Service: 07/02/23 Narrative: Procedure Description: EGD Indication: hx of esophagitis Anesthesia: MAC FLEXIBLE TRANSORAL UPPER GASTROINTESTINAL ENDOSCOPY UPPER ENDOSCOPY Consent: Indications for the procedure and potential complications of bleeding, perforation, reaction to medications and missed diagnosis were discussed with the patient and informed consent was obtained. Instrument: Olympus GIF H 190 J mid size upper endoscope Monitoring: Vital signs and clinical assessment, continuous EKG monitoring, Pulse oximetry, Carbon Dioxide monitoring and blood pressure monitoring were done throughout the procedure. Procedure: The patient was placed in the left lateral decubitis position and pre-procedure medications were administered and a bite block was placed. The endoscope was inserted into the mouth and advanced under direct vision to the third part of duodenum. A careful inspection was made as the upper endoscope was withdrawn including a retroflexed examination of the proximal stomach; Findings and interventions are described below. Findings: Larynx:normal Esophagus: GE junction at 39 cm, diaphragm hiatus at 41 cm, consistent with 2 cm sliding hiatal hernia, tongues of salmon pink tissue suggestive of short segment barretts, bx taken Stomach: Patchy erythema Grade 2 flap valve on retroflexed examination of the cardia. Duodenum: Normal bulb and descending duodenum, Intervention: Biopsies as noted above Impression/Findings: gastritis small hiatal hernia possible barretts PLAN: cont w/ PPI GERD precautions
[2023-07-02 09:55] VITALS: BP 108/75; PULSE 71; RESP 16; TEMP 36.5; O2SAT 97
[2023-07-02 10:10] VITALS: BP 115/75; PULSE 52; RESP 16; O2SAT 98
[2023-07-02 10:25] VITALS: BP 125/78; PULSE 52; RESP 18; TEMP 36.4; O2SAT 100
== END 2023-07-02 10:57 | disposition home or self-care (01) ==
PROVIDERS: PCP Family Medicine; Visit Provider Internal Medicine Gastroenterology
PROC: 0DJ08ZZ Inspection of Upper Intestinal Tract, Via Natural or Artificial Opening Endoscopic (ICD-10-PCS; CPT 43235; principal; 2023-07-02 09:10)
DX: K21.00 Gastro-esophageal reflux disease with esophagitis, without bleeding (principal); K29.70 Gastritis, unspecified, without bleeding; K44.9 Diaphragmatic hernia without obstruction or gangrene; J45.909 Unspecified asthma, uncomplicated; Z79.899 Other long term (current) drug therapy
CPT/HCPCS: 43239; 88305; 88313; 88342; J1596; J2704

== ENCOUNTER → 2023-07-02 07:22 | Outpatient (BNV) | payer BC, SELFPAY | PROVIDERS: PCP Family Medicine; Visit Provider Internal Medicine Gastroenterology | DX: Z87.19 Personal history of other diseases of the digestive system (principal); K21.00 Gastro-esophageal reflux disease with esophagitis, without bleeding | CPT/HCPCS: 43239 ==

== ENCOUNTER 2023-09-08 16:15 | Outpatient (AMB) | payer BC, SELFPAY ==
[2023-09-08 16:16] VITALS: BP 120/70; PULSE 82; O2SAT 98; BMI 30.9
--- NOTE | 2023-09-08 16:16 | A.OFFPC_ITS ---
Vital Signs 09/08/23 16:16 Height 5 ft 11 in Weight 221 lb 4 oz BMI 30.9 BP 120/70 Pulse 82 Pulse Source Pulse Oximeter Pulse Oximetry (%) 98 Oxygen Delivery Method Room Air Intake Visit Reasons: F/U Hypercholesterolemia Intake Note: Patient is here to follow up on his cholesterol. Patient complains of joint pain, still after tick bite. Allergies cephalexin [From Keflex] Allergy (Mild, Verified 09/08/23 16:21) hives Tobacco use date assessed: 09/08/23 Dental Screening Dental Screen Date: 10/28/22 Did you have a dental visit in the last 12 months?: Yes Did you have a dental problem in the last 6 months where you did not have access to dental care?: No Was dental information given to patient?: Patient has dentist HPI F/U Hypercholesterolemia HPI Details 48 y/o male presents to f/u hyperlipidem ia. Had recommended lifestyle changes. No recent labs to review. Pt has complaints of joint pain after a tick bite. 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 Cognitive needs: No Hearing needs: No Vision needs: No Review of Systems Const Denies chills, Denies fatigue, Denies fever(s), Denies headache(s) and Denies weakness ENT Denies dizziness and Denies headache(s) Card Denies dyspnea Resp Denies cough, Denies dyspnea, Denies wheezing and Denies other (shortness of breath) Musc Denies numbness and Denies tingling Neuro Denies dizziness, Denies headache(s), Denies numbness, Denies tingling and Denies weakness Psych Denies anxiety and Denies depression Endo Denies fatigue Aller/Immun Denies wheezing Physical exam (Primary Care) Vital Signs: Last Vital Signs Pulse 82 09/08/23 16:16 BP 120/70 09/08/23 16:16 Pulse Ox 98 09/08/23 16:16 Oxygen Delivery Method Room Air 09/08/23 16:16 BMI result Body Mass Index 30.9 Tobacco/Smoking Status: Tobacco use Status Tobacco use date assessed 09/08/23 09/08/23 16:22 Patient Tobacco Use Status Never used Tobacco 09/08/23 16:19 e-Cigarette/Vaping Use Never Used 09/08/23 16:19 Const General: well developed; No acute distress Nutritional Appearance: well nourished Orientation/consciousness: patient oriented x3 HENMT Head: Yes normocephalic and Yes atraumatic Eyes General: appearance normal, both eyes and all related structures Pupils: Equal, round and reactive pupils present EOM: EOMs intact bilaterally Resp Effort & Inspection: normal respiratory effort Neuro General: patient oriented x3 and gait normal Cranial nerves: Yes Equal, round and reactive pupils present Psych Affect: normal affect Assessment and Plan Assessment & Plan (1) Hypercholesteremia: Code(s): E78.00 - Pure hypercholesterolemia, unspecified Plan: Patient?has?not?had?his?cholesterol?levels?redrawn?yet. He?has?gained?back?some?weight?as?we ll?and?says?he?has?not?really?worked?on?diet/lifestyle?changes. He?will?get?his?labs?drawn?and?we?can?review?this We?discussed?that?we?may?want?to?use?medication?to?control?his?lipids. 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 Advised?ice/heat Will?send?a?script?for?a?topical?NSAID. (3) Tick bite: Code(s): W57.XXXA - Bitten or stung by nonvenomous insect and other nonvenomous arthropods, initial encounter Plan: As?above,?patient?has?Lyme?titer?was?negative (4) Esophagitis determined by biopsy: Comment: Reviewed pathology and recommendation Code(s): K20.90 - Esophagitis, unspecified without bleeding Plan: Continue?pantoprazole Follow-up?with?GI?as?recommended (5) Pain in both forearms: Code(s): M79.632 - Pain in left forearm; M79.631 - Pain in right forearm Plan: Occupational?therapy?as?described?above Orders: Orders OT Evaluation and Treatment Today M25.50 - Pain in unspecified joint, M79.631 - Pain in right forearm, M79.632 - Pain in left forearm Medications: New diclofenac sodium 1% 4 grams topical BID 30 days 100 grams 2RF Coding Level of Care Code Est Pt Level 4 (34462) Diagnoses Hypercholesteremia E78.00 Polyarthralgia M25.50 Tick bite W57.XXXA Esophagitis determined by biopsy K20.90 Pain in both forearms M79.632; M79.631
== END 2023-09-08 16:44 | disposition home or self-care (01) ==
PROVIDERS: PCP Family Medicine; Visit Provider Family Medicine
DX: E78.00 Pure hypercholesterolemia, unspecified (principal); M25.50 Pain in unspecified joint; W57.XXXA Bitten or stung by nonvenomous insect and other nonvenomous arthropods, initial encounter; K20.90 Esophagitis, unspecified without bleeding; M79.632 Pain in left forearm; M79.631 Pain in right forearm
CPT/HCPCS: 99214

== ENCOUNTER 2023-09-23 07:52 | Outpatient (REF) | payer BC, SELFPAY ==
[2023-09-23 11:29] LABS: Alanine Aminotransferase 25 U/L (0-40); Albumin Level 4.4 g/dL (3.5-5.0); Alkaline Phosphatase 82 U/L (39-117); Anion Gap 12 (12-20); Aspartate Amino Transferase 21 U/L (5-37); Bilirubin Total 1.8 mg/dL (0.0-1.0); Blood Urea Nitrogen 14 mg/dL (9-16); Calcium 9.4 mg/dL (8.4-10.2); Carbon Dioxide 25 mmol/L (22-29); Chloride 107 mmol/L (96-108); Cholesterol 277 mg/dL (<200); Estimated Glomerular Filt Rate > 60; Glucose Fasting 94 mg/dL (60-99); HDL Cholesterol 52 mg/dL (>40); LDL Cholesterol Calculated 193 mg/dL (<100); Sodium 140 mmol/L (135-145); Total Protein 7.3 g/dL (6.5-8.0); Triglycerides 160 mg/dL (<150)
== END 2023-09-23 07:53 | disposition home or self-care (01) ==
LOC: HO.WFDLDS 07:52
PROVIDERS: Visit Provider Family Medicine
DX: Z00.00 Encounter for general adult medical examination without abnormal findings (principal); E78.00 Pure hypercholesterolemia, unspecified
CPT/HCPCS: 36415; 80053; 80061

== ENCOUNTER 2023-10-13 15:40 | Outpatient (AMB) | payer BC, SELFPAY ==
--- NOTE | 2023-10-13 15:40 | A.OFFPC_ITS ---
Intake Visit Reasons: follow up hypercolestorolism Intake Note: Patient is here to follow up on Hyoercholesterolism. Low Voltage Electrician Required: No Microfilm Technician: Not Required per policy Accompanied by: Self / Same As Patient Allergies cephalexin [From Keflex] Allergy (Mild, Verified 10/13/23 15:41) hives Tobacco use date assessed: 10/13/23 Dental Screening Dental Screen Date: 10/13/23 Did you have a dental visit in the last 12 months?: Yes Did you have a dental problem in the last 6 months where you did not have access to dental care?: No Was dental information given to patient?: Patient has dentist HPI follow up hypercolestorolism HPI Details 48 y/o male presents to review hyperlipi demia and lab work via telemedicine. Labs were drawn 09/23/23. Reviewed labs with pt. Triglycerides 160. TC 277. LDL 193. HDL 52. Pt reports forearm pain improved - he notes forearms might have been overused from driving too much. 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 1. Little interest or pleasure in doing things: not at all 2. Feeling down, depressed, or hopeless: not at all 3. Trouble falling or staying asleep, or sleeping too much: not at all 4. Feeling tired or having little energy: not at all 5. Poor appetite or overeating: not at all 6. Feeling bad about yourself - or that you are a failure or have let yourself or your family down: not at all 7. Trouble concentrating on things, such as reading the newspaper or watching television: not at all 8. Moving or speaking so slowly that other people could have noticed. Or the opposite - being so fidgety or restless that you have been moving around a lot more than usual: not at all 9. Thoughts that you would be better off or of hurting yourself in some way: not at all Total score: 0 Depression Screening Interpretation: Negative Depression Screening Done: Yes Source: Developed by Drs. Brian Floyd, Ellie Blackwell, Mohinder Foster and colleagues, with an educational ligia from [employer] Thrive Questionnaire Date Thrive assessed: 10/13/23 I am a: Patient What is your living situation today?: I have a steady place to live Within the past 12 months, did the food you bought not last and you didn't have the money to get more?: Never true Within the past 12 months, did you worry whether your food would run out before you got money to buy more?: Never true Do you have trouble paying for medicines?: No Do you have trouble getting transportation to medical appointments?: No Do you have trouble paying your heating and electricity bill?: No Do you have trouble taking care of your child, family member or friend?: No Do you have trouble with day-to-day activities such as bathing, preparing meals, shopping, managing finances, etc.?: No Are you currently unemployed and looking for a job?: No Are you interested in more education?: No Currently or been in a relationship where the following occur: No concerns reported THRIVE Score: 0 AUDIT C Alcohol Use Questionnaire (AUDIT-C) 1. How often do you have a drink containing alcohol?: 2-3 times a week 2. How many drinks containing alcohol do you have on a typical day when you are drinking?: 1 or 2 Total Score: 3 PATRICK-7 AMB Questionnaire PATRICK-7 Date PATRICK - 7 assessed: 10/13/23 Feeling nervous, anxious, or on edge: 0 = Not at all Not being able to stop or control worryin = Not at all Worrying too much about different things: 0 = Not at all Trouble relaxin = Not at all Being so restless that it is hard to sit still: 0 = Not at all Becoming easily annoyed or irritable: 0 = Not at all Feeling afraid as if something awful might happen: 0 = Not at all Total PATRICK-7 score (0-4 normal; 5-9 mild; 10-14 moderate; 15-21 severe): 0 Source: Developed by Drs. Brian Floyd, Ellie Blackwell, Mohinder Foster and colleagues, with an educational ligia from [employer]. Physical exam (Primary Care) Tobacco/Smoking Status: Tobacco use Status Tobacco use date assessed 10/13/23 10/13/23 15:43 Patient Tobacco Use Status Never used Tobacco 10/13/23 15:43 e-Cigarette/Vaping Use Never Used 10/13/23 15:43 PHQ-9: PHQ-9 Score PHQ-9: Total score 0 10/13/23 15:59 Depression Screening Interpretation: Negative Thrive Assessment: Date of Thrive Assessment Date Thrive assessed 10/13/23 10/13/23 15:43 Currently or been in a relationship where the following occur: No concerns reported Telehealth Telehealth Telehealth Platform: Telephone Location of provider rendering services: practice address Location of patient: address on file Patient Identification confirmed using: Name, : Yes Telehealth method: voice only Patient verbally consented to treatment: Yes Patient verbally consented to billing insurance company: Yes Patient informed of any privacy concerns related to visit: Yes Minutes spent on Phone/Video with Pt.: 7 Assessment and Plan Assessment & Plan (1) Hypercholesteremia: Code(s): E78.00 - Pure hypercholesterolemia, unspecified Plan: Cholesterol?levels?are?still?very?high Start?atorvastatin?40?mg?daily - may?need?to?increase?this Follow- up?in?3?months?to?review?repeat?lipid?levels?and?adjust?medication?as?needed (2) Pain in both forearms: Code(s): M79.632 - Pain in left forearm; M79.631 - Pain in right forearm Plan: This?resolved?with?relative?rest?and?diclofenac Avoid?overuse?disorder Ice/heat Topical?NSAIDs?and?relative?rest He?will?let?me?know?if?this?flares?up?again Orders: Orders Lipid Panel Today E78.00 - Pure hypercholesterolemia, unspecified, Z00.00 - Encounter for general adult medical examination without abnormal findings Comprehensive [place]. Panel Fast Today E78.00 - Pure hypercholesterolemia, unspecified, Z00.00 - Encounter for general adult medical examination without abnormal findings Medications: New atorvastatin 40 mg PO BEDTIME 90 tabs 3RF 90 days Coding Level of Care Code Tele Est Pt Level 2 (22317) Diagnoses Hypercholesteremia E78.00 Pain in both forearms M79.632; M79.631
== END 2023-10-13 16:41 | disposition home or self-care (01) ==
LOC: HO.HMGFM 15:40
PROVIDERS: PCP Family Medicine; Visit Provider Family Medicine
DX: E78.00 Pure hypercholesterolemia, unspecified (principal); M79.632 Pain in left forearm; M79.631 Pain in right forearm
CPT/HCPCS: 99441

== ENCOUNTER 2024-07-06 09:08 | Day surgery (SDC) | payer BC, SELFPAY ==
[2024-07-01 13:58] VITALS: BMI 28.6
--- NOTE | 2024-07-05 08:30 | P.CONAN_ITS ---
Documented by User: Shelley Alston NP 07/05/24 08:31 HPI - Anesthesia Eval Consult details Narrative: 49yo M for Upper Endoscopy PMFSH Active Problems Active Problems: All Active Problems Pain in both forearms (Acute) Pain in both forearms (Acute) Polyarthralgia (Acute) Hypercholesteremia (Acute) Screening for prostate cancer (Acute) Adult general medical exam (Acute) Hemorrhoids (Acute) Esophagitis determined by biopsy (Acute) Globus sensation (Acute) Screening for colon cancer (Acute) Tick bite (Acute) Laboratory exam ordered as part of routine general medical examination (Acute) GERD (gastroesophageal reflux disease) (Acute) Past Medical History Medical History Frequent headaches Whiplash Sinusitis Asthma Family History Family History Mother Heart attack Father Asthma Cancer Family history of problems with anesthesia: No Surgical History Surgical History History of esophagogastroduodenoscopy (EGD) Hx of colonoscopy History of Problems with Anesthesia: No Social History Social History Housing: House Alcohol intake: current Alcohol intake frequency: a few times a week Patient Tobacco Use Status: Never used Tobacco e-Cigarette/Vaping Use: Never Used Second Hand Smoke Exposure: No service: No Current occupational status: employed 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 Cognitive needs: No Hearing needs: No Vision needs: No Meds Allergies Allergy/AdvReac Type Severity Reaction Status Date / Time cephalexin [From Keflex] Allergy Mild hives Verified 10/13/23 15:41 Exam Height,Weight and Vital Signs: Height 5 ft 11 in Weight 92.986 kg Assessment and Plan Assessment Anesthesia Assessment: Chart Reviewed Final Anesthetic Review Family History of Problems with Anesthesia: No History of Problems with Anesthesia: No Documented by User: Destinee Chan MD 07/06/24 11:51 [facility] Active Problems Active Problems: All Active Problems Pain in both forearms (Acute) Pain in both forearms (Acute) Polyarthralgia (Acute) Hypercholesteremia (Acute) Screening for prostate cancer (Acute) Adult general medical exam (Acute) Hemorrhoids (Acute) Esophagitis determined by biopsy (Acute) Globus sensation (Acute) Screening for colon cancer (Acute) Tick bite (Acute) Laboratory exam ordered as part of routine general medical examination (Acute) GERD (gastroesophageal reflux disease) (Acute) Asthma- no inhaler use for years Past Medical History Medical History Frequent headaches Whiplash Sinusitis Asthma Family History Family History Mother Heart attack Father Asthma Cancer Family history of problems with anesthesia: No Surgical History Surgical History History of esophagogastroduodenoscopy (EGD) Hx of colonoscopy History of Problems with Anesthesia: No Social History Social History Housing: House Alcohol intake: current Alcohol intake frequency: a few times a week Patient Tobacco Use Status: Never used Tobacco e-Cigarette/Vaping Use: Never Used Second Hand Smoke Exposure: No service: No Current occupational status: employed 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 Denies broken or loose teeth) Heart: RRR Lungs: CTAB Assessment and Plan Assessment Anesthesia Assessment: Anesthesia Plan Discussed and Chart Reviewed Final Anesthetic Review Family History of Problems with Anesthesia: No History of Problems with Anesthesia: No NPO: Yes ASA Class: II Final Preanesthetic Review: No Changes in Pt Med Stat, Meds/Allgs Chart Reviewed, Consent Obtained/Reviewed and Anes Risks/Benef Reviewed Patient Risk: Low Procedure Risk: Low Assessment/Block/Sedation in SS: Assess/Block/Sedation-SS Anesthetic Plan Anesthetic Plan: TIVA Disposition: Standard PACU
[2024-07-06 10:34] VITALS: BP 133/83; PULSE 78; RESP 16; TEMP 36.7; O2SAT 96
[2024-07-06] MEDS: Lactated Ringers 1,000 ML 100 ML IVCONT (10:42)
--- NOTE | 2024-07-06 11:16 | MHC.SHP ---
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 Relevant Family History (Specify if Yes): No Relevant Social History: None Present Medications: see Short Stay Collaborative assessment Medical History: Significant History (Frequent headaches Whiplash Sinusitis Asthma) History of Previous Operations: Relevant previous surgery/procedure and date(s) (History of esophagogastroduodenoscopy (EGD) Hx of colonoscopy) Allergies: Allergies Allergy/AdvReac Type Severity Reaction Status Date / Time cephalexin [From Keflex] Allergy Mild hives Verified 10/13/23 15:41 Review of Systems Sugical H&P ROS: Negative: Constitution, Cardiovascular, Respiratory, Neurological, Psychiatric, Hem-Onc, Allergic/Immunologic, Gastrointestinal, Genitourinary, Musculoskeletal, Integumentary, Endocrine and Eyes/Ears/Nose/Throat Exam Surgical H&P Exam: Normal: HEENT, Normal: Heart, Normal: Lungs, Normal: Extremities, Normal: Abdomen, Normal: Skin and Normal: Neurological Plan Diagnosis/Plan: Unchanged I have reviewed the history and physical and performed a pertinent physical examination on my patient. No changes have occurred unless specified. Time Spent With Patient Time: Total time managing care of this patient today ____ minutes.
--- NOTE | 2024-07-06 11:41 | W.PM.OPN ---
Operative Note Operative Note Date of Service: 07/06/24 Narrative: Procedure Description: EGD Indication: GERD Anesthesia: MAC FLEXIBLE TRANSORAL UPPER GASTROINTESTINAL ENDOSCOPY UPPER ENDOSCOPY Consent: Indications for the procedure and potential complications of bleeding, perforation, reaction to medications and missed diagnosis were discussed with the patient and informed consent was obtained. Instrument: Olympus GIF H 190 J mid size upper endoscope Monitoring: Vital signs and clinical assessment, continuous EKG monitoring, Pulse oximetry, Carbon Dioxide monitoring and blood pressure monitoring were done throughout the procedure. Procedure: The patient was placed in the left lateral decubitis position and pre-procedure medications were administered and a bite block was placed. The endoscope was inserted into the mouth and advanced under direct vision to the third part of duodenum. A careful inspection was made as the upper endoscope was withdrawn including a retroflexed examination of the proximal stomach; Findings and interventions are described below. Findings: Larynx:normal Esophagus: GE junction at 37 cm, diaphragm hiatus at 40 cm, few small linear erosive streaks seen with possible few islands and short segment esquivel,s--bx taken Stomach: mild gastritis . Biopsies were obtained. Grade 2 flap valve on retroflexed examination of the cardia. Duodenum: Normal bulb and descending duodenum, Intervention: Biopsies as noted above, Impression/Findings: gastritis erosive esophagitis small hiatal hernia PLAN: check compliance with PPI--can change if not working GERD precautions consider hiatal hernia repair referral if ongoing sx
[2024-07-06 11:43] VITALS: BP 101/68; PULSE 72; RESP 14; TEMP 36.6; O2SAT 94
[2024-07-06 11:58] VITALS: BP 116/81; PULSE 75; RESP 17; TEMP 36.6; O2SAT 97
== END 2024-07-06 12:24 | disposition home or self-care (01) ==
PROVIDERS: PCP Family Medicine; Visit Provider Internal Medicine Gastroenterology
PROC: 0DJ08ZZ Inspection of Upper Intestinal Tract, Via Natural or Artificial Opening Endoscopic (ICD-10-PCS; CPT 43235; principal; 2024-07-06 12:00)
DX: K21.9 Gastro-esophageal reflux disease without esophagitis (principal); K20.80 Other esophagitis without bleeding; K29.70 Gastritis, unspecified, without bleeding; K44.9 Diaphragmatic hernia without obstruction or gangrene; J45.909 Unspecified asthma, uncomplicated; J32.9 Chronic sinusitis, unspecified; R51.9 Headache, unspecified; E78.00 Pure hypercholesterolemia, unspecified; Z79.899 Other long term (current) drug therapy; Z88.1 Allergy status to other antibiotic agents
CPT/HCPCS: 43239; 88305; 88313; 88342; J1596; J2003; J2704

== ENCOUNTER → 2024-07-06 09:08 | Outpatient (BNV) | payer BC, SELFPAY | PROVIDERS: PCP Family Medicine; Visit Provider Internal Medicine Gastroenterology | DX: K21.00 Gastro-esophageal reflux disease with esophagitis, without bleeding (principal); K29.70 Gastritis, unspecified, without bleeding | CPT/HCPCS: 43239 ==

== ENCOUNTER 2024-08-05 08:45 | Outpatient (AMB) | payer BC, SELFPAY ==
--- NOTE | 2024-08-05 09:06 | A.OFFVIS_ITS ---
VS Expanded 08/05/24 09:17 BP 136/86 Blood Pressure Location Rt brachial Blood Pressure Position Sitting Pulse 69 Pulse Source Pulse Oximeter Temp 97.0 F Temperature Source Temporal Artery Scan Pulse Oximetry 97 Oxygen Delivery Method Room Air Height 5 ft 11 in Weight 218 lb 12.8 oz BMI 30.5 Body Fat % 27.8 Body Fat Mass 60.8 Fat Free Mass 157.8 Visceral Fat Rating 13.0 Body Water % 50.0 Body Water Mass 109.4 Muscle Mass/Score 150.2 Basal Metabolic Rate/Score 2,113 Intake Visit Reasons: OV Hiatal Hernia - Dr. Rashid Ref Allergies cephalexin [From Keflex] Allergy (Mild, Verified 08/05/24 09:10) hives HPI Comments Details: Here for evaluation for esophagitis and diaphragmatic hernia Tests reviewed: EGD: 06/2024: 3cm Hiatal hernia with esophagitis. 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 Cognitive needs: No Hearing needs: No Vision needs: No Physical Exam Vital Signs: Last Vital Signs Temp 97.0 F 08/05/24 09:17 Pulse 69 08/05/24 09:17 BP 136/86 08/05/24 09:17 Pulse Ox 97 08/05/24 09:17 Oxygen Delivery Method Room Air 08/05/24 09:17 BMI result Body Mass Index 30.5 GI Inspection: Yes normal to inspection (Mixed body habitus) Palpation (GI): Firmness to palpation present (GI) Extrem Right lower extremity: normal to inspection Left lower extremity: normal to inspection Assessment & Plan Assessment & Plan (1) Diaphragmatic hernia: Code(s): K44.9 - Diaphragmatic hernia without obstruction or gangrene Category: Medical Qualifiers: Obstruction and gangrene presence: without obstruction or gangrene Qualified Code(s): K44.9 - Diaphragmatic hernia without obstruction or gangrene Plan: 1. We discussed the potential etiology of the hernia that could be of traumatic etiology worsened by his weight. We discussed the details of the diaphragmatic hernia repair and the potential technical challenges such as being able to achieve enough mobilization of the esophagus back in the abdomen and being able to close the diaphragmatic muscle (crura) primarily with sutures. We also discussed the possibility of using a biologic mesh to close the hernia defect if the crura cannot be adequately re-approximated primarily with sutures. We also discussed the option of doing a gastropexy or a fundoplication to prevent pos toperative reflux and prevent hernia recurrence. As we discussed, I favor the gastropexy as the fundoplication can cause several distrurbing symptoms such as gas-bloating, flatulence, inability to burp which can be bothersome to patients especially for him with a history of IBS. Also we discussed the complexity of a potential hernia recurrence in association with a hernia recurrence. He was in agreement not to have a fundoplication. We also discussed that after surgery, he will need to be on a liquid diet with protein shakes the first week. The second week will add protein bars and soft foods and after the third week we will introduce small amounts of regular food. The transition to normal eating habits will take about 6 weeks which is the time required for the repair to heal completely. 2. Nutritional counseling. Start with one CELEBRATE REBUILD protein (buy at hospital's gift shop) shake (HALF scoop in 8oz low fat unsweetened almond milk each) at 5am-7am, 3 protein bars (CELEBRATE protein bars, buy at [facility] gift [facility]) at 8am-10am, [id number] and 2pm-4pm, dinner at 5pm (10 forks of protein and 10 forks of salad/vegetables) AND one more protein shake CELEBRATE REBUILD protein shake (HALF scoop in 8oz low fat unsweetened almond milk each) at 7pm- 9pm So you do 2 protein shakes, 3 protein bars and one meal per day. Meal to include lean meat (beef, fish, pork, turkey, chicken), or kazakh yogurt, or egg whites, or beans with a salad with olive oil and fruits (berries, pears, apples, kiwi). Avoid salt, breads, potatoes, rice, pasta, desserts. 3. Each shake would be drunk slowly, like coffee in a period of 2 hours. 4. Cut each bar in 4 pieces and eat each piece in 30min ?to make each bar last 2 hours. 5. I emphasized the importance of measuring accurately the food portion and measure it when serving the food in plate 6. The meal portions include 10 full-size forks of meat and 10 full-size forks of salad. You always eat the meat portion but you can replace up to 5 forks for salad/vegetables with rice, potatoes or pasta, or a fruit ?if you like. The less you do it the better weight loss will be. 7. One full-size fork is what it can be scooped on the fork without falling aside and not what can be bit with the fork. Use regular forks like those you find in a typical restaurant. 8.? Please buy the body composition scale we discussed and send me weight measurements as soon as possible and then once a week. Always include your diet and exercise plan. 9. Start treadmill with an incline of 2.0 and speed of 3.0. Increase incline by 1 every 3 min to a max incline of 8.0, stay 3min at 8.0 and then return to 2.0 and repeat same steps until calorie goal is met. Goal is to burn 2000 calories per week on exercise, which means either 300 calories daily, or 400 calories 5 days per week, or 500 calories 4 days per week, or 650 calories 3 days per week. Start also weight exercises with 20-30lbs for chest/shoulders/abdomen and 40- 50lbs for thighs doing 2 sets of 15 repetitions each. 10. Goal to lose 10% of your weight before surgery, which is about 22lbs. Ultimate weight goal: 196lbs before surgery 11. Please follow the diet plan exactly without any change. If you don't like something about the plan or you feel hungry you need to communicate with me so I can help you revise the plan. You should not change the plan yourself
[2024-08-05 09:17] VITALS: BP 136/86; PULSE 69; TEMP 36.1; O2SAT 97; BMI 30.5
== END 2024-08-05 10:17 | disposition home or self-care (01) ==
LOC: HO.HBS 08:45
PROVIDERS: PCP Family Medicine; Visit Provider Surgery
DX: K44.9 Diaphragmatic hernia without obstruction or gangrene (principal)
CPT/HCPCS: 99204

== ENCOUNTER → 2024-08-05 08:45 | Outpatient (BNVA) | payer BC, SELFPAY | PROVIDERS: PCP Family Medicine; Visit Provider Surgery ==

== ENCOUNTER 2024-09-12 09:05 | Outpatient (AMB) | payer BC, SELFPAY ==
--- NOTE | 2024-09-12 11:00 | MHC.OFFVISWM ---
VS Expanded 09/12/24 11:08 Height 5 ft 11 in Weight 210 lb 4 oz BMI 29.3 Body Fat % 28.2 Body Fat Mass 59.3 Fat Free Mass 151 Visceral Fat Rating 13 Body Water % 51.8 Body Water Mass 108.9 Basal Metabolic Rate/Score 1,851 Intake Visit Reasons: VIDEO Pre Op Diaphragmatic Hernia 10/25/24 *COM* Allergies cephalexin (From Keflex) Allergy (Mild, Verified 09/12/24 11:01) hives Medication List - Last Reconciled 09/12/24 by Padilla Mejia MD atorvastatin 40 mg PO BEDTIME 90 days ondansetron 4 mg PO Q12H pantoprazole 40 mg PO DAILY pantoprazole 40 mg PO DAILY polyethylene glycol 3350 17 grams PO DAILY sucralfate 10 mL PO BID HPI HPI VIDEO Pre Op Diaphragmatic Hernia 10/25/24 *COM*: Details: Start time: 10.50m, End time: 11.20am ?I spent 25 minutes speaking with the patient on the phone plus an additional 5 minutes reviewing and updating records for a total of 30 minutes HPI Comments Details: This is the preop visit for laparoscopic diaphragmatic hernia repair Overall weight loss so far: 8.4lbs, or 3.84% [facility] Medical History Frequent headaches Whiplash Sinusitis Asthma Surgical History History of esophagogastroduodenoscopy (EGD) Hx of colonoscopy Family History Mother Heart attack Father Asthma Cancer Social History (Updated 08/05/24 @ 09:11 by Suellen Perry CMA) Housing: House Alcohol intake: current Alcohol intake frequency: a few times a week Patient Tobacco Use Status: Never used Tobacco e-Cigarette/Vaping Use: Never Used Second Hand Smoke Exposure: No service: No Current occupational status: employed 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 Cognitive needs: No Hearing needs: No Vision needs: No Telehealth Telehealth Telehealth Platform: Telephone ([employer]) Location of provider rendering services: practice address Location of patient: address on file Patient Identification confirmed using: Name, : Yes Telehealth method: video Patient verbally consented to treatment: Yes Patient verbally consented to billing insurance company: Yes Patient informed of any privacy concerns related to visit: Yes Minutes spent on Phone/Video with Pt.: 30 Assessment & Plan Assessment & Plan (1) Diaphragmatic hernia: Code(s): K44.9 - Diaphragmatic hernia without obstruction or gangrene Category: Medical Qualifiers: Obstruction and gangrene presence: without obstruction or gangrene Qualified Code(s): K44.9 - Diaphragmatic hernia without obstruction or gangrene Plan: 1. We discussed the potential etiology of the hernia. We discussed the details of the diaphragmatic hernia repair and the potential technical challenges such as being able to achieve enough mobilization of the esophagus back in the abdomen and being able to close the diaphragmatic muscle (crura) primarily with sutures. We also discussed the possibility of using a biologic mesh to close the hernia defect if the crura cannot be adequately re-approximated primarily with sutures. We also discussed the option of doing a gastropexy or a fundoplication to prevent postoperative reflux and prevent hernia recurrence. As we discussed, I favor the gastropexy as the fundoplication can cause several distrurbing symptoms such as gas-bloating, flatulence, inability to burp which can be bothersome to patients. Also we discussed the complexity of a potential hernia recurrence in association with a hernia recurrence. He was in agreement not to have a fundoplication. We also discussed that after surgery, he will need to be on a liquid diet with protein shakes the first week. The second week will add protein bars and soft foods and after the third week we will introduce small amounts of regular food. The transition to normal eating habits will take about 6 weeks which is the time required for the repair to heal completely. 2. Preop prescriptions were provided and explained the purpose of each one. Need to be purchased preop. Start Pantoprazole now as you get it from the pharmacy, 1 pill per day. Sucralfate and Zofran are for after surgery as needed. 3. Bowel prep: please do 7 packets ?of Miralax mixing each one with a an 8oz glass of water, crystal light, gatorade zero, or propel ?on 10/23/24 and the same amount on 10/24/24. The Miralax you begin with one packet at a time in 8oz water or crystal light, gatorade zero, or propel ?as early in the day as you can and you do them back to back until you finish them. Continue the protein shakes during ?the bowel prep. 4. Needs to purchase 1oz medicine cups . 5. Needs to purchase Children's liquid Tylenol for postop pain control. 6. Avoid aspirin, motrin, Advil, Aleve, Meloxicam, Excedrin, Ibuprofen, Naproxyn. Tylenol is OK. 7. Will do basic preop blood work-up any day between Thursday10/17/24 and Thursday10/21/24 fasting for 12 hours and is scheduled to see the Anesthesiologist prior to the day of surgery. 8. Importance of adherence to postop folllow-up and recommendations was underscored and he understands that. 9. Stop food and bars as of October 18, 2024, and continue with 2 Celebrate Rebuild protein shakes (ONE scoop EACH in 8oz almond milk) at 6am-8am and 10am-12pm and three more Celebrate Rebuild protein shakes with TWO scoops EACH in 8oz of almond milk at 1pm-3pm, 5pm-7pm and 9pm-11pm. 10. No soups, broths or V8 11. The patient's?medical?history has been reviewed and they are considered low risk for post op DVT and therefore DVT prophylaxis is not considered necessary. Travel after surgery was reviewed. The patient has not disclosed any travel plans during the first 30 days after surgery and they have been advised that within the first 30 days after surgery any bus, plane, train or car travel over 2 hours in duration is contraindicated due to the possibility of developing blood clots from immobility. Any travel, needs to include periods of ambulation of 10 minutes in duration every 2 hours.? Patient was instructed to discuss any plans for travel during this period with their bariatric surgeon.? 12. Please take at the day of surgery the following medications: NONE 13. Stop any control pills and don't use them for one month after surgery 14. Absolutely no smoking or vaping, or marijuana until the surgery and for at least the first 4 weeks. Only nicotine patches are allowed. 15. Send me weight measurements weekly on Tuesdays and then on Thursday10/25/24, the day of surgery before you go to the hospital. 16. Avoid any steroids by mouth for any reason. Let me know if someone prescribes them to you Orders: Orders Comprehensive Met. Panel Today E78.00 - Pure hypercholesterolemia, unspecified, K21.9 - Gastro-esophageal reflux disease without esophagitis, R09.89 - Other specified symptoms and signs involving the circulatory and respiratory systems Hemoglobin A1c Today E78.00 - Pure hypercholesterolemia, unspecified, K21.9 - Gastro-esophageal reflux disease without esophagitis, R09.89 - Other specified symptoms and signs involving the circulatory and respiratory systems Insulin Today E78.00 - Pure hypercholesterolemia, unspecified, K21.9 - Gastro-esophageal reflux disease without esophagitis, R09.89 - Other specified symptoms and signs involving the circulatory and respiratory systems TSH reflex Free T4 Today E78.00 - Pure hypercholesterolemia, unspecified, K21.9 - Gastro-esophageal reflux disease without esophagitis, R09.89 - Other specified symptoms and signs involving the circulatory and respiratory systems Prothrombin Time INR Today E78.00 - Pure hypercholesterolemia, unspecified, K21.9 - Gastro-esophageal reflux disease without esophagitis, R09.89 - Other specified symptoms and signs involving the circulatory and respiratory systems Type and Screen Today E78.00 - Pure hypercholesterolemia, unspecified, K21.9 - Gastro-esophageal reflux disease without esophagitis, R09.89 - Other specified symptoms and signs involving the circulatory and respiratory systems Partial Thromboplastin Time Today E78.00 - Pure hypercholesterolemia, unspecified, K21.9 - Gastro-esophageal reflux disease without esophagitis, R09.89 - Other specified symptoms and signs involving the circulatory and respiratory systems Lipid Panel Today E78.00 - Pure hypercholesterolemia, unspecified, K21.9 - Gastro-esophageal reflux disease without esophagitis, R09.89 - Other specified symptoms and signs involving the circulatory and respiratory systems C Reactive Protein Today E78.00 - Pure hypercholesterolemia, unspecified, K21.9 - Gastro-esophageal reflux disease without esophagitis, R09.89 - Other specified symptoms and signs involving the circulatory and respiratory systems Complete Blood Count Auto Diff Today E78.00 - Pure hypercholesterolemia, unspecified, K21.9 - Gastro-esophageal reflux disease without esophagitis, R09.89 - Other specified symptoms and signs involving the circulatory and respiratory systems Medications: New pantoprazole 40 mg PO DAILY 90 tabs 0RF K21.9 - Gastro-esophageal reflux disease without esophagitis ondansetron 4 mg PO Q12H 20 tabs 0RF nausea and vomiting R11.0 - Nausea polyethylene glycol 3350 Mix each measuring cup with 8oz of water, Crystal light, or Gatorade zero, or Propel and do 7 measuring cups on 10/23/24 and another 7 measuring cups on 10/24/24 17 grams PO DAILY 238 grams 0RF Z01.818 - Encounter for other preprocedural examination sucralfate 10 mL PO BID 600 mL 2RF K21.9 - Gastro-esophageal reflux disease without esophagitis
[2024-09-12 11:08] VITALS: BMI 29.3
== END 2024-09-12 11:21 | disposition home or self-care (01) ==
LOC: HO.HBS 09:05
PROVIDERS: Visit Provider Surgery
DX: K44.9 Diaphragmatic hernia without obstruction or gangrene (principal)
CPT/HCPCS: 99214

== ENCOUNTER → 2024-09-12 09:05 | Outpatient (BNVA) | payer BC, SELFPAY | PROVIDERS: Visit Provider Surgery | DX: Z13.89 Encounter for screening for other disorder (principal) ==

== ENCOUNTER 2024-10-25 08:41 | Day surgery (SDC) | payer BC, SELFPAY ==
[2024-10-19 06:33] LABS: MANUAL DIFF FLAG NO
[2024-10-19 07:36] LABS: Hematocrit 46.2 % (42.0-52.0); Hemoglobin 15.6 g/dl (14.0-18.0); Imm Gran Abs Auto 0.01 X10*3/uL (0.00-0.03); Imm Gran Pct Auto 0.2 % (0.0-0.4); Lymphocytes Absolute Auto 2.5 X10*3/uL (1.2-4.9); Mean Corpuscular HGB Conc 33.8 g/dl (31.0-36.0); Mean Corpuscular Hemoglobin 31.0 pg (27.0-33.0); Mean Corpuscular Volume 91.8 fL (80.0-98.0); NRBC Abs Auto 0.000 X10*3/uL (0.0-0.012); NRBC Pct Auto 0.0 /100WBC (0.0-0.2); Platelet Count 277 X10*3/uL (160-400); Red Blood Count 5.03 X10*6/uL (4.60-5.80); White Blood Count 6.1 X10*3/uL (4.8-10.8)
[2024-10-19 07:46] LABS: Hemoglobin A1C 125.5475 umol/L; Total Hemoglobin (HGBA1C) 4023.5726 umol/L
[2024-10-19 07:48] LABS: INTERNATIONAL NORM RATIO 1.1 (0.9-1.1); Prothrombin Time 12.1 SEC (10.9-12.4)
[2024-10-19 07:51] LABS: Partial Thromboplastin Time 33.9 SEC (26.7-34.1)
[2024-10-19 08:14] LABS: Alanine Aminotransferase 40 U/L (0-40); Albumin Level 4.6 g/dL (3.5-5.0); Alkaline Phosphatase 77 U/L (39-117); Anion Gap 13 (12-20); Aspartate Amino Transferase 25 U/L (5-37); Blood Urea Nitrogen 14 mg/dL (9-16); Calcium 9.4 mg/dL (8.4-10.2); Carbon Dioxide 26 mmol/L (22-29); Chloride 105 mmol/L (96-108); Cholesterol 260 mg/dL (<200); Estimated Glomerular Filt Rate > 60; HDL Cholesterol 53 mg/dL (>40); Potassium 3.7 mmol/L (3.3-5.1); Sodium 140 mmol/L (135-145); Total Protein 7.0 g/dL (6.5-8.0); Triglycerides 83 mg/dL (<150)
[2024-10-21 12:35] VITALS: BMI 29.3
--- NOTE | 2024-10-24 09:03 | P.CONAN_ITS ---
Documented by User: Shelley Alston NP 10/24/24 09:04 HPI - Anesthesia Eval Consult details Narrative: 49yo M for Hernia Diaphragmatic Lap Reducible, Upper Endoscopy PMFSH Active Problems Active Problems: All Active Problems Diaphragmatic hernia (Acute) Pain in both forearms (Acute) Pain in both forearms (Acute) Polyarthralgia (Acute) Hypercholesteremia (Acute) Screening for prostate cancer (Acute) Adult general medical exam (Acute) Hemorrhoids (Acute) Esophagitis determined by biopsy (Acute) Globus sensation (Acute) Screening for colon cancer (Acute) Tick bite (Acute) Laboratory exam ordered as part of routine general medical examination (Acute) GERD (gastroesophageal reflux disease) (Acute) Past Medical History Medical History Frequent headaches Whiplash Sinusitis Asthma Family History Family History Mother Heart attack Father Asthma Cancer Family history of problems with anesthesia: No Surgical History Surgical History History of esophagogastroduodenoscopy (EGD) (06/30/24) History of esophagogastroduodenoscopy (EGD) Hx of colonoscopy History of Problems with Anesthesia: No Social History Social History Housing: House Alcohol intake: current Alcohol intake frequency: a few times a week Patient Tobacco Use Status: Never used Tobacco e-Cigarette/Vaping Use: Never Used Second Hand Smoke Exposure: No Use of substances other than those prescribed or required for medical reasons: No Advance Directives: No Advance Directives Information Provided: Yes service: No Current occupational status: employed 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 Cognitive needs: No Hearing needs: No Vision needs: No Meds Allergies Allergy/AdvReac Type Severity Reaction Status Date / Time cephalexin (From Keflex) Allergy Mild hives Verified 09/12/24 11:01 Exam Height,Weight and Vital Signs: Height 5 ft 11 in Weight 95.368 kg Pertinent Lab Results Pertinent Lab Results: Laboratory Tests 10/19/24 10/19/24 06:25 06:31 WBC 6.1 RBC 5.03 Hgb 15.6 Hct 46.2 MCV 91.8 MCH 31.0 MCHC 33.8 RDW 12.5 Plt Count 277 MPV 9.2 L Immature Gran % (Auto) 0.2 Neut % (Auto) 43.2 L Lymph % (Auto) 41.0 H [place] % (Auto) 10.5 Eos % (Auto) 4.4 H Baso % (Auto) 0.7 Lymph # (Auto) 2.5 [place] # (Auto) 0.6 Eos # (Auto) 0.3 Baso # (Auto) 0.0 Abs Immat Gran (auto) 0.01 Absolute Neuts (auto) 2.6 Absolute Nucleated RBC 0.000 Nucleated RBC % (auto) 0.0 PT 12.1 INR 1.1 APTT 33.9 Sodium 140 Potassium 3.7 Chloride 105 Carbon Dioxide 26 Anion Gap 13 BUN 14 Creatinine 0.86 Estim Creat Clear Calc TNP Estimated GFR > 60 Random Glucose 86 Estimat Average Glucose 97 Hemoglobin A1c % 5.0 Insulin Level 5 Calcium 9.4 Total Bilirubin 2.7 H AST 25 ALT 40 Alkaline Phosphatase 77 C-Reactive Protein 0.20 Total Protein 7.0 Albumin 4.6 Triglycerides 83 Cholesterol 260 H LDL Cholesterol, Calc 191 H HDL Cholesterol 53 TSH 1.38 Blood Type O Positive Antibody Screen NEGATIVE Assessment and Plan Assessment Anesthesia Assessment: Chart Reviewed Final Anesthetic Review Family History of Problems with Anesthesia: No History of Problems with Anesthesia: No Documented by User: Karolina Navarro MD 10/25/24 10:40 [facility] Past Medical History Medical History Frequent headaches Whiplash Sinusitis Asthma Family History Family History Mother Heart attack Father Asthma Cancer Surgical History Surgical History History of esophagogastroduodenoscopy (EGD) (06/30/24) History of esophagogastroduodenoscopy (EGD) Hx of colonoscopy Social History Social History Housing: House Alcohol intake: current Alcohol intake frequency: a few times a week Patient Tobacco Use Status: Never used Tobacco e-Cigarette/Vaping Use: Never Used Second Hand Smoke Exposure: No Use of substances other than those prescribed or required for medical reasons: No Advance Directives: No Advance Directives Information Provided: Yes service: No Current occupational status: employed 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 Cognitive needs: No Hearing needs: No Vision needs: No Meds Allergies Allergy/AdvReac Type Severity Reaction Status Date / Time cephalexin (From Keflex) Allergy Mild hives Verified 09/12/24 11:01 Exam Airway Mallampati Class: II TM Dist: >3cm Neck ROM: Full Loose/Missing/Broken Teeth: No Heart: RRR Lungs: CTA Assessment and Plan Assessment Anesthesia Assessment: Anesthesia Plan Discussed Final Anesthetic Review NPO: Yes ASA Class: II Final Preanesthetic Review: Meds/Allgs Chart Reviewed, Consent Obtained/Reviewed and Anes Risks/Benef Reviewed Patient Risk: Low Procedure Risk: Intermediate Anesthetic Plan Anesthetic Plan: GA Disposition: Standard PACU
[2024-10-25] VITALS (10 sets, daily range): BP systolic 118–140; BP diastolic 70–84; PULSE 58–83; RESP 16–18; TEMP 36.1–36.7; O2SAT 96–100; BMI 27.5
[2024-10-25] MEDS: Aprepitant 32 MG/4.4 ML VIAL IVPUSH (09:09)
[2024-10-25] MEDS: Lactated Ringers 1,000 ML 999 ML IV (09:10)
[2024-10-25] MEDS: Lactated Ringers 1,000 ML 100 ML IVCONT ×3 (10:17→23:58)
--- NOTE | 2024-10-25 10:46 | MHC.SHP ---
Pre-Procedural Eval Section A - 24 Hr Update-Section A only Date of Service: 10/25/24 The patient is an INPATIENT: No The patient has been examined within 24 hours of the surgical procedure. The History & Physical has been completed within 30 days and I have reviewed it.: Yes Section B - Complete if H&P > 30 days Chief Complaint: Diaphragmatic hernia without obstruction or gangre Relevant Family History (Specify if Yes): No Relevant Social History: None Present Medications: None Medical History: No relevant PMH History of Previous Operations: No relevant previous surgery Allergies: Allergies Allergy/AdvReac Type Severity Reaction Status Date / Time cephalexin (From Keflex) Allergy Mild hives Verified 09/12/24 11:01 Review of Systems Sugical H&P ROS: Negative: Constitution, Cardiovascular, Respiratory, Neurological, Psychiatric, Hem-Onc, Allergic/Immunologic, Gastrointestinal, Genitourinary, Musculoskeletal, Integumentary, Endocrine and Eyes/Ears/Nose/Throat Exam Surgical H&P Exam: Normal: HEENT, Normal: Heart, Normal: Lungs, Normal: Extremities, Normal: Abdomen, Normal: Skin and Normal: Neurological Plan Diagnosis/Plan: Unchanged I have reviewed the history and physical and performed a pertinent physical examination on my patient. No changes have occurred unless specified. Time Spent With Patient Time: Total time managing care of this patient today ____ minutes.
--- NOTE | 2024-10-25 10:48 | P.BOP_ITS ---
Brief Operative Note Date of Service: 10/25/24 Pre-op diagnosis: Diaphragmatic hernia and GERD Post-op diagnosis: same Procedure: Date of Service: 10/25/2024 Pre-op diagnosis: Diaphragmatic hernia Post-op diagnosis: same Procedure: Procedure: COMORBIDITIES: GERD, diaphragmatic hernia, hyperlipidemia, ?INDICATIONS: The patient is a 49 year old male who was referred to me from Dr. Rashid for a diaphragmatic hernia and GERD confirmed by EGD. The patient is scheduled today for diaphragmatic hernia repair. Risks of recurrent hernia, dysphagia, persistent GERD, VTE, leak, infection and bleeding were discussed with the patient and he is in agreement with the plan. PROCEDURE: Esophago-gastroscopy, laparoscopic lysis of adhesions, laparoscopic repair of incarcerated diaphragmatic hernia and laparoscopic gastropexy. DESCRIPTION OF PROCEDURE: After informed consent was obtained from the patient, the patient was given preoperative antibiotics, and was transferred to the operating room. After successful induction of general anesthesia, pneumatic compression devices were placed on both lower extremities. An upper endoscopy was performed next. The oropharynx and upper esophagus appeared to be within normal limits. The stomach was entered and the scope was advanced all the way to the pylorus.? After all fluid and air were suctioned and the stomach was fully decompressed, the scope was withdrawn and secured in the mid esophagus. The patient was then prepped and draped in the usual sterile manner. Abdominal access was established at the right upper quadrant with the Mary technique. A 12 mm blunt trocar was inserted and the abdomen was insufflated with CO2 to a pressure of 15 mmHg. Following that additional ports were placed, specifically two 5 mm Versi-step ports to the left upper and one 5 mm Versi-step to the right upper quadrant. 1% lidocaine plain was used to infiltrate all port sites as well as all fascia defects. Following that, the patient was placed in a steep reverse Trendelenburg position. An additional 5 mm port was placed to the right flank for the Mediflex retractor that was used to retract the left lobe of the liver. There was a giant paraesophageal hernia with about half of the stomach herniated into the chest next to the esophagus. I then opened the gastrocolic ligament between the transverse colon and the greater curvature of the stomach with the ultrasonic device to enter the lesser sac and facilitate the ligation of the short gastric vessels. I started at at the upper third along the greater curvature and using the Thunderbeat, all attachments were divided. There was an obvious sliding diaphragmatic hernia. The stomach was incarcerated into the mediastinum with multiple thick adhesions. Mobilization of the stomach was very difficult and required tedious and careful dissection of the proximal short gastric vessels. I continued dissecting along the hiatus toward the left heather into the mediastinum mobilizing the hernia sac from the mediastinum. The esophagus was carefully dissected off the aorta. The pleura spaces were not violated in either side. The pars flaccida was opened. It was actually herniated into the hernia defect. The vena cava was not dilated and it was carefully protected. I then continued by dissecting even further into the posterior retro- esophageal space all the way to the angle of His. I continued to mobilize the esophagus into the mediastinum circumferentially. The esophagus was densely adherent to the aorta and the majority of these adhesions were mobilized. Both vagal nerves were seen and preserved. With extensive circumferential dissection into the mediastinum, I was able to bring the GE junction at least 3cm below the crura. I closed the hernia defect with three interrupted #0 Surgidac sutures using the Endo Stitch device, two of which were placed posterior and one of which anterior to the esophagus. The bites were carefully placed to include both the ventral and dorsal aspect of the two crura, advancing slightly more at the left heather as it was located more diagonally than the right. ? A gastropexy was then performed in order to prevent postoperative GERD and partial gastric volvulus. Several interrupted 2.0 Surgidac sutures were placed between the greater curvature of the dissected stomach and the previously divided greater omentum and gastro-colic ligament using the Endo-Stitch device. ?An upper endoscopy was performed. There was no narrowing at the GE junction or any esophageal injury. The scope was easily advanced all the way to the pylorus which was clearly visualized. There was no narrowing anywhere. I confirmed that the GE junction was 3cm intra-abdominally. At that point the gastroscope was withdrawn from the patient?s mouth while we were decompressing the bowel and the stomach from any remaining air. I looked into the lesser sac to see how the stomach was situating and it was situating well. There was no bleeding from the, spleen, or short gastric vessels. The Mediflex retractor was removed, and the undersurface of the liver was inspected and there was no bleeding. The patient was placed in supine position. Then 30cc of Ropivacaine plain with 10 mg of Dexamethasone were used to infiltrate the fascial closure as well as all skin incisions. At this point, the abdomen was deflated, all ports were removed under direct vision, and no bleeding was noted from any of the port sites. The skin incisions were irrigated with saline and were closed with 4-0 absorbable monofilament sutures. Steri- Strips and OpSites were used to cover all incisions. The patient was extubated and was transferred in stable condition to the recovery room for further care. I was present and performed all yoon parts of the procedure. Mr. Campos was the transportation assistant. There were no residents to assist with this case. Valerio Mejia MD, PhD, FACS Surgeon: Padilla Mejia MD Anesthesia: GETA, local and other (TAP block) Was an Orthophotography Technician used for this Procedure?: No Orthophotography Technician: Vitaliy Campos Estimated blood loss (mL): 10 IV fluids (mL): 2,500 Urine output (mL): 0 (No Akins to record output) Pathology: other (Gastro-esophageal fat pad) Condition: stable Disposition: PACU
--- NOTE | 2024-10-25 10:50 | P.PNGS_ITS ---
Subjective Subjective Date of Service: 10/26/24 Interval history: Feels well. Mild incisional pain. He is tolerating phase 1 bariatric diet Physical Exam 2 Vital Signs: Vital Signs: Last Vital Signs Temp 97.7 F 10/25/24 09:11 Pulse 58 10/25/24 09:11 Resp 16 10/25/24 09:11 BP 118/76 10/25/24 09:11 Pulse Ox 99 10/25/24 09:11 O2 Del Method Room Air 10/25/24 09:11 BMI result Body Mass Index 27.5 GI: Inspection: Yes normal to inspection and Yes incision (clean, dry and intact) Palpation (GI): Soft to palpation Extrem: Right lower extremity: normal to inspection (no calf tenderness) L eft lower extremity: normal to inspection (no calf tenderness) Objective Data Active Medications Albuterol Sulfate (Albuterol Sulfate (0.083%) 2.5 Mg/3 Ml Vial.Neb) 2.5 mg INHALE ONCE PRN PRN Reason: Shortness of Breath/Wheezing Albuterol/Ipratropium (Albuterol/Iprat 2.5/0.5mg 3 Ml Ampul.Neb) 3 ml INHALE ONCE PRN PRN Reason: Bronchospasm/wheezing Stop: 10/25/24 16:41 Fentanyl (Fentanyl Citrate/Pf 100 Mcg/2 Ml Vial) 25 mcg IVPUSH Q5M PRN PRN Reason: Pain, Moderate to Severe (Pain Scale 4-10) Stop: 10/25/24 16:40 Haloperidol Lactate (Haloperidol Lactate 5 Mg/Ml Vial) 1 mg IVPUSH ONCE PRN PRN Reason: intractable nausea Stop: 10/25/24 16:41 Hydromorphone HCl (Hydromorphone Hcl 0.5 Mg/0.5 Ml Syringe) 0.25 mg IVPUSH Q5M PRN PRN Reason: Pain, Moderate to Severe (Pain Scale 4-10) Stop: 10/25/24 16:40 Lactated Ringer's (Lr) 1,000 mls @ 100 mls/hr IVCONT .Q10H PAMELA Stop: 10/25/24 12:59 Last Admin: 10/25/24 10:17 Dose: 100 mls/hr Documented By: LUCERO Naloxone HCl (Naloxone Hcl 0.4 Mg/Ml Vial) 0.04 mg IVPUSH Q5M PRN PRN Reason: Excessive sedation or RR < 8 Ondansetron HCl (Ondansetron Hcl 4 Mg/2 Ml Vial) 4 mg IVPUSH ONCE PRN PRN Reason: Nausea and Vomiting Stop: 10/25/24 16:41 Oxycodone HCl (Oxycodone Hcl Immed Release 5 Mg Tablet) 5 mg PO ONCE PRN PRN Reason: Pain, Moderate(Pain Scale 4-6) if no IV Access Stop: 10/25/24 16:41 Labs 10/26/24 05:24 10/26/24 05:24 Procedures Date of Service Date of Service: 10/26/24 Progress Note: A&P Assessment and plan (1) Diaphragmatic hernia: Status: Acute Assessment and Plan: s/p laparoscopic lysis of adhesions, diaphragmatic hernia repair and gastropexy Doing well Will check am labs and if OK the patient will be discharged home (2) GERD (gastroesophageal reflux disease): Status: Acute (3) Hypercholesteremia: Status: Acute (4) Status post repair of paraesophageal diaphragmatic hernia: Status: Acute (5) Intra-abdominal adhesions: Status: Acute Time Spent With Patient Time: Total time managing care of this patient today ____ minutes. Quality Stroke Does the patient have a stroke diagnosis?: No VTE Prior VTE?: No VTE Risk Level:: Surgical - moderate VTE Device Contraindication: N/A - Device Ordered VTE Drug Contraindication: Treatment Not Indicated
--- NOTE | 2024-10-25 13:19 | P.DS_ITS ---
DS: Providers Provider Date of Service: 10/26/24 Date of discharge: 10/26/24 Primary care physician: Sherif Hernandez MD DS: Diagnosis Discharge Diagnosis (1) Diaphragmatic hernia: Status: Acute (2) GERD (gastroesophageal reflux disease): Status: Acute (3) Hypercholesteremia: Status: Acute DS: Summary Hospital Course Hospital Course: ADMITTING DIAGNOSIS: gerd, esophagitis, diaphragmeatic hernia, hld ? DISCHARGE DIAGNOSIS: same, s/p laparoscopic repair diaphragmatic hernia ? PAST SURGICAL HISTORY: none ? PROCEDURE: upper endoscopy, laparoscopic repair of diaphragmatic hernia ? DISCHARGE SUMMARY: ? History of Present Illness: ? The patient is a?49 year-old man with a BMI of?27.5 kg/m2 and associated co- morbidities as described above. The patient had extensive work-up, and was electively scheduled for laparoscopic, possible open repair of diaphragmatic hernia and gastropexy. Risks and complications of the surgery were discussed with the patient in advance, particularly the possibility of , pulmonary embolism, anastomotic leak, bleeding, bowel injury, GERD, cardiac, renal or pulmonary complications. The patient understood all the risks and was in agreement with the surgical plan. ? Hospital Course: ? The patient underwent an uneventful laparoscopic repair of diaphragmatic hernia with gastropexy on the day of admission. Postoperatively, the patient was transferred to the surgical floor. The patient received IV Acetaminophen and IV dilaudid for pain control. Patient was started on bariatric phase 1 diet POD #0. On postoperative day one, the patient was feeling well without nausea, vomiting, fevers, or tachycardia. The patient had some mild incisional pain and the abdomen was soft. ? On the morning of postoperative day one, the patient was continued on 1 ounce of water or ice every half hour. During the day, the patient did fairly well, having some incisional pain, but able to ambulate adequately and to tolerate liquids well. ? Since the patient is doing well, we decided that the patient was ready to be discharged. The patient was given instructions to follow-up with me next week and to call my office for any fever over 101, persistent abdominal pain, nausea, vomiting, GERD, symptoms of DVT such as calf tenderness, or leg swelling, or pulmonary embolism such as chest pain or shortness of breath. The patient was also instructed to drink 40-60 ounces of liquids per day using the 1-ounce cups. The patient had been given prescriptions for Tylenol for pain, Zofran prn for nausea, and pantoprazole and carafate previously. The patient was encouraged to ambulate and use the incentive spirometer. The patient was allowed to shower, but no baths, and encouraged to stay active at home. All of these instructions were given to the patient personally. All questions were answered and the patient understood all instructions, the instructions were also given to the patient in print. Time Attestation Total time managing care of this patient today: 25 mintues. Discharge Coordination Time (in mins): 25 Quality: Safe Use of Opioids Does Pt have an Active Cancer Diagnosis on the Problem List?: No Quality: Stroke Does the patient have a stroke diagnosis?: No Physical Exam Vital Signs: Vital Signs: Last Vital Signs Temp 97.7 F 10/25/24 09:11 Pulse 58 10/25/24 09:11 Resp 16 10/25/24 09:11 BP 118/76 10/25/24 09:11 Pulse Ox 99 10/25/24 09:11 O2 Del Method Room Air 10/25/24 09:11 BMI result Body Mass Index 27.5 DS: Data Data Completed and Pending Pending studies at discharge: Pending at discharge 10/25/24 12:58 Surgical [PTH] Routine Discharge Plan Discharge Patient Disposition: Home, Self-Care Referrals: Sherif Hernandez MD [Primary Care Provider, Internal Medicine] - 1 Week Discharge Medications: No Action polyethylene glycol 3350 17 gram/dose powder 17 g PO DAILY Qty: 238 0RF Rx Instructions: Mix each measuring cup with 8oz of water, Crystal light, or Gatorade zero, or Propel and do 7 measuring cups on 10/23/24 and another 7 measuring cups on 10/24/24 sucralfate 100 mg/mL suspension 10 ml PO BID Qty: 600 2RF pantoprazole 40 mg tablet,delayed release (DR/EC) 40 mg PO DAILY Qty: 90 3RF atorvastatin 40 mg tablet 40 mg PO BEDTIME 90 Days Qty: 90 3RF ondansetron 4 mg tablet,disintegrating 4 mg PO Q12H Qty: 20 0RF Discharge Orders: Discharge Order (Routine); Ordered 10/26/24 Ordered By: Padilla Mejia Activity on Discharge: No heavy lifting Activity Restrictions/Additional Instructions: No tub baths, sex or returning to work until discussed at first post op appointment. No exercise, alcohol, tobacco or illegal drug use. Continue to use incentive spirometer hourly while awake. Walk in home for 5- 10 minutes every 2 hours during the first week. Follow all instructions in the bariatric handbook and call with any questions.Discharge Instructions 1. Please call your doctor or come back to the emergency room should any new symptoms arise. 2. You will receive a courtesy call from [facility] 24-48 hours after discharge. 3. Activity: abstain from alcohol, practice limited stair climbing, no bending, no driving, no exercise, no illicit substances, no lifting, no sex, no tub bath, no work. 4. Diet: continue as discussed with Dr. Mejia. 5. Dressing Change/Wound Care: Your incision is covered by clear bandages and guaze underneath. If the area is tender, you may apply an ice pack for short intervals (no more than 20 minutes on, followed by at least 20 minutes off). Do not apply heat. Do not use creams, lotions, or topical antibiotics unless instructed to do so by your surgeon. These can cause infection or allergic reaction. 6. Call your doctor if: - Your temperature exceeds 101.5 F - You experience excessive pain or swelling - You have an unexpected reaction to medication - You have excessive bleeding - You experience continued vomiting/nausea - Your incision begins to separate - Your incision shows signs of infection such as increased redness, swelling, excessive pain, heat, or drainage (light blood or clear fluid is normal) 7. General instructions: No lifting greater than 5 lbs for 1 week and not more than 20lbs the next 3?weeks. No driving until seen at the office in 5-7 days after surgery. If you do not move your bowels in the next 2 days, please tell?Dr. Mejia. Please walk around your home every hour or two to prevent blood clots from forming in your legs. You do not need to wake from sleeping to walk. Please sleep in a bed or couch to prevent kinking at the hips and knees. Please take your incentive spirometer (your lung curing supervisor) home with you and use it for the next few days to prevent pneumonia. You may shower, no hot tubs, baths or swimming pools.?Please follow the post op diet instructions you are?given by Dr Mejia? and text me daily at 5-6pm for an update.?If you have any issues or concerns or questions please communicate this to him via text.? The Celebrate shakes have all of the bariatric vitamins you need if you consume these shakes. If you are drinking other protein shakes, you will need to purchase the Celebrate multivitamins and calcium that are available in the hospital gift shop on the first floor of the main hospital.??Do not take anything without first discussing with Dr Mejia. Please make sure you are consuming at least 40 ounces of fluids per day starting the?day AFTER your discharge from the hospital. Always drink 1-2 ml per minute using the 5ml?syringe. If you drink faster you may experience?bloating,?gas pain, burping, nausea or heartburn. In that case please slow down your pace and use the syringe to?understand better the?proper?pace and volume of drinking. Do not hesitate to contact the office with any questions at . The patient's medical history has been reviewed and they are considered low risk for post op DVT and therefore DVT prophylaxis is not considered necessary. Travel after surgery was reviewed. The patient has not disclosed any travel plans during the first 30 days after surgery and they have been advised that within the first 30 days after surgery any bus, plane, train or car travel over 2 hours in duration is contraindicated due to the possibility of developing blood clots from immobility. Any travel, needs to include periods of ambulation of 10 minutes in duration every 2 hours.? The patient was instructed to discuss any plans for travel during this period with their bariatric surgeon. Print Language: Indonesian Discharge Date/Time: 10/26/24 08:18
[2024-10-25 14:23] LABS: Hematocrit 41.8 % (42.0-52.0); Hemoglobin 14.2 g/dl (14.0-18.0)
[2024-10-25 14:34] LABS: Anion Gap 10 (12-20); Blood Urea Nitrogen 9 mg/dL (9-16); Calcium 8.6 mg/dL (8.4-10.2); Carbon Dioxide 27 mmol/L (22-29); Chloride 107 mmol/L (96-108); Creatinine Clr Calc Pharmacy 110.7; Estimated Glomerular Filt Rate > 60; Potassium 4.1 mmol/L (3.3-5.1); Sodium 140 mmol/L (135-145)
[2024-10-26 03:22] VITALS: BP 123/79; PULSE 64; RESP 16; TEMP 36; O2SAT 97
[2024-10-26 05:44] LABS: MANUAL DIFF FLAG NO
[2024-10-26 06:08] LABS: Anion Gap 13 (12-20); Blood Urea Nitrogen 9 mg/dL (9-16); Calcium 8.8 mg/dL (8.4-10.2); Carbon Dioxide 23 mmol/L (22-29); Chloride 107 mmol/L (96-108); Creatinine Clr Calc Pharmacy 130.7; Estimated Glomerular Filt Rate > 60; Potassium 4.3 mmol/L (3.3-5.1); Sodium 139 mmol/L (135-145)
[2024-10-26 06:16] LABS: Hematocrit 40.7 % (42.0-52.0); Hemoglobin 14.1 g/dl (14.0-18.0); Imm Gran Abs Auto 0.03 X10*3/uL (0.00-0.03); Imm Gran Pct Auto 0.4 % (0.0-0.4); Lymphocytes Absolute Auto 1.0 X10*3/uL (1.2-4.9); Mean Corpuscular HGB Conc 34.6 g/dl (31.0-36.0); Mean Corpuscular Hemoglobin 31.1 pg (27.0-33.0); Mean Corpuscular Volume 89.8 fL (80.0-98.0); NRBC Abs Auto 0.000 X10*3/uL (0.0-0.012); NRBC Pct Auto 0.0 /100WBC (0.0-0.2); Platelet Count 226 X10*3/uL (160-400); Red Blood Count 4.53 X10*6/uL (4.60-5.80); White Blood Count 8.4 X10*3/uL (4.8-10.8)
[2024-10-26 07:58] VITALS: BP 123/77; PULSE 72; RESP 16; TEMP 36.8; O2SAT 98
--- NOTE | 2024-10-26 08:26 | MHC.CM.PN ---
Patient dc'd home self care via private transport prior to CM assessment.
--- NOTE | 2024-10-26 10:13 | HO.POSTANES ---
Post Anesthesia Evaluation Post Anesthesia Evaluation Date of Service: 10/26/24 Vital Signs: Vital Signs Temp Pulse Resp BP Pulse Ox O2 Del Method 10/26/24 07:58 98.3 F 72 16 123/77 98 Room Air 10/26/24 03:22 96.8 F 64 16 123/79 97 Room Air Anesthesia: General Mental Status: Awake Pain Control: Satisfactory Nausea/Vomiting: None Hydration: Adequate Anesthesia-Related Issues: No Anes. Related Issues
== END 2024-10-26 08:18 | disposition home or self-care (01) ==
LOC: HO.SSS 13:22 → HO.S3 14:13
PROVIDERS: Physician Assistant Surgical; PCP Family Medicine; Visit Provider Surgery
PROC: (CPT 43281; principal; 2024-10-25 10:20)
DX: K44.9 Diaphragmatic hernia without obstruction or gangrene (principal); K21.9 Gastro-esophageal reflux disease without esophagitis; E78.00 Pure hypercholesterolemia, unspecified; E78.5 Hyperlipidemia, unspecified; R11.0 Nausea; R59.0 Localized enlarged lymph nodes; K66.0 Peritoneal adhesions (postprocedural) (postinfection); R09.89 Other specified symptoms and signs involving the circulatory and respiratory systems; J45.909 Unspecified asthma, uncomplicated; J32.9 Chronic sinusitis, unspecified; R51.9 Headache, unspecified; Z87.19 Personal history of other diseases of the digestive system; Z79.899 Other long term (current) drug therapy; Z88.1 Allergy status to other antibiotic agents; Z98.890 Other specified postprocedural states
CPT/HCPCS: 43281; 36415; 80048; 80053; 80061; 83036; 83525; 84443; 85014; 85018; 85025; 85610; 85730; 86140; 86850; 86900; 86901; 88305; A4649; C9145; J0131; J1100; J1171; J1956; J2003; J2250; J2405; J2470; J2704; J2795; J3010; J7120

== ENCOUNTER → 2024-10-25 08:41 | Outpatient (BNV) | payer BC, SELFPAY | PROVIDERS: PCP Family Medicine; Visit Provider Surgery | DX: K44.9 Diaphragmatic hernia without obstruction or gangrene (principal); K21.9 Gastro-esophageal reflux disease without esophagitis; E78.00 Pure hypercholesterolemia, unspecified; Z98.890 Other specified postprocedural states; Z87.19 Personal history of other diseases of the digestive system; K66.0 Peritoneal adhesions (postprocedural) (postinfection) | CPT/HCPCS: 43281; 99024; 99499 ==

== ENCOUNTER 2024-11-03 13:32 | Outpatient (AMB) | payer BC, SELFPAY ==
--- NOTE | 2024-11-03 13:50 | A.OFFVIS_ITS ---
VS Expanded 11/03/24 14:02 BP 119/75 Blood Pressure Location Rt brachial Blood Pressure Position Sitting Pulse 74 Pulse Source Pulse Oximeter Temp 96.3 F L Temperature Source Temporal Artery Scan Pulse Oximetry 96 Oxygen Delivery Method Room Air Height 5 ft 11 in Weight 184 lb 12.8 oz BMI 25.8 Body Fat % 22.0 Body Fat Mass 40.6 Fat Free Mass 114.2 Visceral Fat Rating 10.0 Body Water % 53.9 Body Water Mass 99.6 Muscle Mass/Score 137.2 Basal Metabolic Rate/Score 1,894 Intake Visit Reasons: (OV) s/p Diaphragmatic Hernia 10/25/24 Allergies cephalexin (From Keflex) Allergy (Mild, Verified 11/03/24 13:58) hives HPI Comments Details: Patient is a pleasant 49-year-old male who returns to the office today in follow-up. He is 9 days post hiatal hernia repair on 10/25/2024. Weight today is 184.8 lb with a BMI of 25.8. States that his work requires him to be able to carry 75 lb 15 ft. He will discuss with Dr. Mejia when he is able to go back to work based on these requirements. No complaints of reflux or pain Tolerating his meal plan: Celebrate rebuild 1 scoop in 8 oz of unsweetened almond milk at 8-10 Celebrate protein bar at 11-1 another shake with 2 scoops at 2-4 Meal at 5 with 4 forks of protein Another bar at 7-9 PFSH Medical History (Updated 11/03/24 @ 00:02 by Niki York) Pain in both forearms Pain in both forearms Screening for prostate cancer Adult general medical exam Hemorrhoids Screening for colon cancer Tick bite Laboratory exam ordered as part of routine general medical examination Frequent headaches Whiplash Sinusitis Asthma Surgical History (Updated 11/03/24 @ 13:58 by Suellen Perry CMA) Hx of hernia repair History of esophagogastroduodenoscopy (EGD) (06/30/24) History of esophagogastroduodenoscopy (EGD) Hx of colonoscopy Family History Mother Heart attack Father Asthma Cancer Social History Household Members: Spouse and Family Housing: House Do you presently have visiting nurse or other home services: No Alcohol intake: current Alcohol intake frequency: a few times a week Patient Tobacco Use Status: Never used Tobacco e-Cigarette/Vaping Use: Never Used Second Hand Smoke Exposure: No service: No Current occupational status: employed 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 He will continue to wear the abdominal binder for another week with any exercise or activity. His job requires him to be able to lift and carry 75 lb 15 ft. He will discuss with Dr. Mejia the timeline with which he can return to work. He will continue to communicate regarding his meal plan. We will have him return to the office in 4-6 weeks
[2024-11-03 14:02] VITALS: BP 119/75; PULSE 74; TEMP 35.7; O2SAT 96; BMI 25.8
== END 2024-11-03 14:26 | disposition home or self-care (01) ==
LOC: HO.HBS 13:33
PROVIDERS: PCP Family Medicine; Visit Provider Physician Assistant Surgical
DX: Z98.890 Other specified postprocedural states (principal); Z87.19 Personal history of other diseases of the digestive system
CPT/HCPCS: 99024

== ENCOUNTER 2024-12-16 09:20 | Outpatient (AMB) | payer BC, SELFPAY ==
--- NOTE | 2024-12-16 09:11 | MHC.OFFVISWM ---
VS Expanded 12/16/24 09:14 Height 5 ft 11 in Weight 192 lb BMI 26.8 Intake Visit Reasons: (TV) s/p Diaphragmatic Hernia 10/25/24 Allergies cephalexin (From Keflex) Allergy (Mild, Verified 11/03/24 13:58) hives Medication List - Last Reconciled 12/16/24 by ROGER Dunn pantoprazole 40 mg PO DAILY sucralfate 10 mL PO BID HPI Comments Details: Patient is a pleasant 49-year-old male who returns to the office today in follow-up. He is 8 weeks s/p hiatal hernia repair on 10/25/2024. Has returned to work and has no restrictions. No complaints of reflux or pain. Tolerating his meal plan: Celebrate rebuild 1 scoop in 8 oz of unsweetened almond milk at 8-10 Celebrate protein bar at 11-1 another shake with 2 scoops at 2-4 Meal at 5 with 4 forks of protein Another bar at 7-9 -he notes he has expanded his meal plan a bit due to changing shifts at work, but continues to have one meal a day and supplement with protein bars, PFSH Medical History (Updated 11/03/24 @ 00:02 by Niki York) Pain in both forearms Pain in both forearms Screening for prostate cancer Adult general medical exam Hemorrhoids Screening for colon cancer Tick bite Laboratory exam ordered as part of routine general medical examination Frequent headaches Whiplash Sinusitis Asthma Surgical History (Updated 11/03/24 @ 13:58 by Suellen Perry CMA) Hx of hernia repair History of esophagogastroduodenoscopy (EGD) (06/30/24) History of esophagogastroduodenoscopy (EGD) Hx of colonoscopy Family History Mother Heart attack Father Asthma Cancer Social History Household Members: Spouse and Family Housing: House Do you presently have visiting nurse or other home services: No Alcohol intake: current Alcohol intake frequency: a few times a week Patient Tobacco Use Status: Never used Tobacco e-Cigarette/Vaping Use: Never Used Second Hand Smoke Exposure: No service: No Current occupational status: employed 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 Cognitive needs: No Hearing needs: No Vision needs: No Telehealth Telehealth Telehealth Platform: Telephone Location of provider rendering services: other Location of patient: address on file Patient Identification confirmed using: Name, : Yes Telehealth method: voice only Patient verbally consented to treatment: Yes Patient verbally consented to billing insurance company: Yes Patient informed of any privacy concerns related to visit: Yes Minutes spent on Phone/Video with Pt.: 15 Assessment & Plan Assessment & Plan (1) Status post repair of paraesophageal diaphragmatic hernia: Code(s): Z98.890 - Other specified postprocedural states; Z87.19 - Personal history of other diseases of the digestive system Category: Medical Plan Pt to continue meal plan per Dr Plasencia Discussed the risks of putting tension on the repair if portion sizes too large. He will complete course of PPI and carafate. No restrictions on activity or work. Pt doing well without surgical complications. Can follow up PRN. He will call the office with any future concerns.
[2024-12-16 09:14] VITALS: BMI 26.8
== END 2024-12-16 09:23 | disposition home or self-care (01) ==
LOC: HO.HBS 09:20
PROVIDERS: PCP Family Medicine; Visit Provider Physician Assistant Surgical
DX: E66.3 Overweight (principal); Z68.26 Body mass index [BMI] 26.0-26.9, adult; Z98.890 Other specified postprocedural states; Z87.19 Personal history of other diseases of the digestive system
CPT/HCPCS: 99024